=== PATIENT | female | born 1980 | race Caucasian/White ===

== ENCOUNTER 2017-01-24 03:21 | Inpatient (IN) | payer OTHER ==
[~2017-01-24] VITALS: Ht 154.9 cm; Wt 52.0 kg
[~2017-01-24 03:21] MED LIST: /BACL20TA PO; ABIL2TAB2 PO; ABIL5TAB5 PO; AMBI10TA PO; AMIT10TA2 OR; AMIT50TA PO; BACL10TA2; BACL10TA2 OR; CELE-19 PO; CLAR5CHW OR; CLON0.5T PO; CONC18TA14 PO; CONC27TA4 PO; CONC36TA2 PO; DICLOFENAC; DIUREX OR; HYDR-2807 PO; HYDR-3716 PO; HYDR-3719 PO; HYDR7.5T38 PO; IBUP600T OR; LAMI200T3 PO; LAMO10TA PO; LIDO1DIS2 TD; LIDO5DIS; LIDO5DIS36 TD; MAXA5TAB OR; MAXA5TAB10 PO; MEDR1VL IM; METH-107 PO; MOBI15TA PO; MULTIVIT; MULTIVIT OR; NEUR100C OR; NEUR600T PO; PERC10TA17 PO; PHAZYME PO; PREG50CA PO; PROA1AER IN; ROBA500T PO; ROPI0.5T PO; SERT25TA85 PO; STOO100C PO; TIZA4TAB3 PO; TOPA25TA10 PO; TRAM50TA2 PO; TRAZ50TA2 PO; TRAZ50TA4 PO; VALI5TAB PO; VICO5TAB; VITA200016 PO; VITA400T PO; VITA500019 PO; VOLT1GEL2 TD; ZOLO100T OR; [UNRECOGNIZED DRUG - OTHER] TOP; hydrcodone OR
[2017-01-24 04:01] LABS: MEAN CORPUSCULAR HEMOGLOBIN 32.8 pg (27.0-33.0); MEAN CORPUSCULAR HGB CONC 32.3 g/dl (32.0-36.5); MEAN CORPUSCULAR VOLUME 101.4 fl (80.0-96.0); RED CELL DISTRIBUTION WIDTH 13.1 % (11.5-14.5)
[2017-01-24 04:31] LABS: ALBUMIN 3.5 GM/DL (3.2-5.2); ALBUMIN/GLOBULIN RATIO 1.25 (1.00-1.93); ALKALINE PHOSPHATASE 60 U/L (45-117); ALT/SGPT 18 U/L (12-78); ANION GAP 11 MEQ/L (8-16); AST/SGOT 14 U/L (15-37); BILIRUBIN,DIRECT < 0.1 MG/DL (0.0-0.2); BILIRUBIN,TOTAL 0.2 MG/DL (0.2-1.0); BLOOD UREA NITROGEN 5 MG/DL (7-18); CALCIUM LEVEL 7.7 MG/DL (8.5-10.1); CARBON DIOXIDE LEVEL 21 MEQ/L (21-32); CHLORIDE LEVEL 115 MEQ/L (98-107); CREATININE FOR GFR 0.79 MG/DL (0.55-1.02); GLOMERULAR FILTRATION RATE > 60.0 (>60); GLUCOSE, FASTING 122 MG/DL (70-105); POTASSIUM SERUM 3.2 MEQ/L (3.5-5.1); SODIUM LEVEL 147 MEQ/L (136-145); TOTAL PROTEIN 6.3 GM/DL (6.4-8.2)
[2017-01-24] MEDS ORDERED: LIDOCAINE W/EPINEPHRINE 1% 20ML VIAL As Ordered ONE (04:45)
[2017-01-24] MEDS ORDERED: LIDOCAINE 2% MDV 20 ML VIAL As Ordered ONE (04:48)
[2017-01-24 06:20] LABS: AMPHETAMINES LEVEL URINE NEGATIVE (NEGATIVE); BENZODIAZEPINES URINE NEGATIVE (NEGATIVE); COCAINE METABOLITE URINE NEGATIVE (NEGATIVE); CONTROL LINE INT CTR LINE PRESENT; METHADONE URINE NEGATIVE (NEGATIVE); OPIATES URINE NEGATIVE (NEGATIVE); TRICYCLIC ANTIDEPRESS URINE NEGATIVE (NEGATIVE)
[2017-01-24 09:04] LABS: ANION GAP 9 MEQ/L (8-16); BLOOD UREA NITROGEN 4 MG/DL (7-18); CALCIUM LEVEL 8.3 MG/DL (8.5-10.1); CARBON DIOXIDE LEVEL 22 MEQ/L (21-32); CHLORIDE LEVEL 117 MEQ/L (98-107); CREATININE FOR GFR 0.69 MG/DL (0.55-1.02); GLOMERULAR FILTRATION RATE > 60.0 (>60); GLUCOSE, FASTING 114 MG/DL (70-105); POTASSIUM SERUM 3.8 MEQ/L (3.5-5.1); SODIUM LEVEL 148 MEQ/L (136-145)
[2017-01-24] MEDS ORDERED: TOPIRAMATE (TopAMAX) 25 MG TAB PO ONE (10:15)
[2017-01-24] MEDS ORDERED: lamoTRIgine 100MG TAB PO ONE (10:15)
[2017-01-24] MEDS ORDERED: ACETAMINOPHEN 325 MG TAB As Ordered ONE (12:29)
[2017-01-24] MEDS ORDERED: VITMTA PO (14:14)
[2017-01-24] MEDS ORDERED: DEPO150I IM (14:14)
[2017-01-24] MEDS ORDERED: IBUP800T23 PO (14:14)
[2017-01-24] MEDS ORDERED: ARIP1TAB6 PO (14:14)
--- NOTE | 2017-01-24 14:52 | EDDOCDS ---
Nurse's Notes [facility] Name: Albania Casiano Age: 36 yrs Sex: Female : 1980 Arrival Date: 01/24/2017 Time: 03:21 Bed [facility] Private MD: JIGNA Quijano Diagnosis: Bipolar disorder, current episode depressed, moderate;Suicide attempt;Laceration without foreign body of left wrist Presentation: 01/24 03:39 Presenting complaint: EMS states: Patient drank unknown amount, patient intoxicated. nn1 Patient has self inflicted lacerations to left wrist, bleeding controlled with pressure dressing. Per EMS patient admitted to suicidal ideation due to husbands deployment. Mental Health Triage Level: Level 2: The patient displays active suicidal ideations. Adult Sepsis Screening: Patient has new or worsening altered mentation (1 point). Patient's respiratory rate is less than 22. Systolic blood pressure is greater than 100. Patient has a qSOFA score of 0- Negative Sepsis Screen. Suicide/Homicide risk assessment- The patient admits to and/or has been reported to be having suicidal ideations. Status: The patient is a dependent. Transition of care: patient was not received from another setting of care. 03:39 Acuity: JOYCE Level 3 nn1 03:39 Method Of Arrival: Ambulance nn1 Triage Assessment: 03:43 General: Appears intoxicated . Behavior is cooperative, drowsy. Pain: Location: left nn1 arm. HIV screening NA for this visit Offered previously. The patient is triaged at the bedside. See Assessment in Nurses Notes section of ED record. Neurological: Level of Consciousness is awake, Oriented to person, place, time, Speech is slurred. Respiratory: Airway is patent Respiratory effort is even, unlabored, Respiratory pattern is regular, symmetrical. GI: Abdomen is non- distended. Derm: Skin is pink, warm & dry. Injury Description: Laceration sustained to left wrist is not bleeding, Deep self inflicted lacerations x 2, superficial laceration x 1. Historical: - Allergies: Darvocet-N 100 (Hives); Lyrica (Swelling); - Home Meds: 1. Abilify 5 mg , 1-2 tabs as needed at HS for sleep Oral tab 1 tab as needed for agitation 2. lamotrigine 200 mg Oral tab 1 tab in the am 3. topiramate 25 mg oral tab four times a day 4. ibuprofen 800 mg Oral tab 1 tab every 8 hours as needed - PMHx: ADHD; Arthritis; Bipolar disorder; Fibromyalgia; restless leg syndrome; - PSHx: ; - Social history: Smoking status: Patient uses tobacco products and is smoker, current status unknown. Patient intoxicated, disoriented with slurred speech . - Family history: Not pertinent. - : The pt / caregiver states he / she is not on anticoagulants. Home medication list is obtained from the patient, Unable to Verify Home Med List with the patient / caregiver. Note Unable to verify due to patient disorientation at this time. - Exposure Risk Screening:: None identified. Screenin:21 Screening information is obtained from the patient. Fall risk: No risks identified. ml6 Assistance ADL's: requires no assistance with activities of daily living. Abuse/DV Screen: The patient / caregiver reports he/she is: not in a situation that causes fear, pain or injury. Nutritional screening: No deficits noted. Advance Directives: Currently, there is no health care proxy. home support is adequate. Assessment: 03:45 General: See triage assessment . nn1 04:31 General: Appears in no apparent distress, comfortable, Behavior is resting quietly on rw1 stretcher with eyes closed, safety maintained. Respiratory: Airway is patent Respiratory effort is even, unlabored. Derm: Skin is pink, warm & dry. normal, cuts to Lt forearm drsg. is dry and intact. 05:30 General: Appears in no apparent distress, comfortable, Behavior is appropriate for age, rw1 cooperative, crying. Pain: Denies pain. Neurological: Level of Consciousness is awake, alert, obeys commands, Oriented to person, place, time. Respiratory: Airway is patent Respiratory effort is even, unlabored. Derm: Skin is pink, warm & dry. normal, lacerations cleansed with NS and sutured by Dr. Grajeda, pt tolerated well. Applied bactracin and DSD applied per MD order. 06:16 Reassessment: Patient appears in no apparent distress at this time. Patient denies pain rw1 at this time. resting quietly on stretcher with eyes closed, safety maintained . 07:21 General: Appears in no apparent distress, Behavior is appropriate for age, cooperative. ml6 Pain: Denies pain. Neurological: No deficits noted. Level of Consciousness is awake, alert, Oriented to person, place, time. Cardiovascular: No deficits noted. Capillary refill < 3 seconds is brisk in bilateral fingers toes. Respiratory: No deficits noted. Airway is patent Respiratory effort is even, unlabored, Respiratory pattern is regular, symmetrical, Breath sounds are clear bilaterally. GI: No deficits noted. 08:25 General: Appears in no apparent distress, comfortable, Behavior is cooperative, mk4 breakfast taken fair. 10:20 General: Appears in no apparent distress, comfortable, to be sleeping. Behavior is mk4 cooperative, awakens readily . Respiratory: Airway is patent Respiratory effort is even, unlabored, Respiratory pattern is regular, Breath sounds are clear bilaterally. 12:00 General: Appears in no apparent distress, Behavior is cooperative. mk4 13:00 General: Appears in no apparent distress, Behavior is cooperative. Respiratory: Airway mk4 is patent Respiratory effort is even, unlabored. 14:43 General: Appears in no apparent distress, comfortable, Behavior is cooperative. mk4 Neurological: Level of Consciousness is awake, alert, Oriented to person, place, time. Respiratory: Airway is patent Respiratory effort is even, unlabored, Respiratory pattern is regular. 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 [facility] Behavioral Health: madhu The patient is not an established patient of [facility] Behavioral Health. Referral Information: Evaluation referral is generated by EMS. The patient was referred for evaluation because PT attempted suicide by cutting her wrist while intoxicated . Subjective: The patients chief complaint is PT states that she is a and her deployed 01/18/2017. A week prior to his leaving he confessed to her what she had suspected for the last three years since his first deployment, that he had been having an online relationship with a woman. PT states she has been getting angrier and last night she was drinking "due to everything that is going on" and then cut her left wrist while very anxious and panicky. PT denies SI but states she was not thinking clearly due to the anxiety. She now feels she may have cut her wrist to "get my 's attention". PT continues to be weepy and is accepting of admission. . Delusions are denied. Patient's mood is depressed. Mental Health history: ADHD, alcohol abuse, Bipolar Disorder, depression, panic attacks, self -mutilation, suicide attempt by cut left wrist Mental Health Admissions: [facility] 10/2014 and 01/2015 Current Outpatient Mental Health Services: Psychiatrist / Agency: Samm Govea. Current living environment is The patient currently lives with his / her significant other, and their three children ages 15, 13 and 8. The patient is . Patient presents to Emergency Department with the following symptoms within the past 2 weeks: alcohol abuse, anxiety, depressed mood, feelings of helplessness/hopelessness, marital problem, poor impulse control, Patient has mutilated themselves by cutting their left arm suicidal ideation with attempt/gesture by cutting. Substance abuse: Patient uses PT admits to occasional use only Patient uses tobacco 1 pack. Mental status exam: Patients appearance is appropriate, Patient's behavior is cooperative, Speech is normal. Affect is flat. Mood is anxious. depressed. Hallucinations are denied. Appetite is normal. Memory is good. Energy level is normal. Content of thought is depressive. due to her marital situation Thought process is intact. Cognitive level is oriented to person, place, time and situation Patient's insight is fair. Judgement is fair. Rapport with interviewer is good. Suicidal Ideation is denied. Homicidal ideation is denied. Disposition: Medically cleared for disposition by Jose C Silverio MD Psychiatric Consult is performed by phone with Dr Jose J Hayes. [facility] Admission Criteria: The patient has had a suicide attempt in the recent past. The patient requires continuous observation and/or control to protect self, others or property. The patient's care requires a multi-modal treatment plan under close supervision and coordination due to the complexity and severity of the patient's symptoms. Legal Status: Patient's legal status will be Emergency admission: 9.39. DSM-V Differential Diagnosis: Bipolar I Disorder (F31.0) Current or most recent episode depressed. Insurance Pre-Certification: Not Required, . Awaiting: transfer to [facility]. Social Work Consult: 06:00 Social Work Note: Per request of patient, ED MD & patient's 's Bennie (which is jl currently here for support), a message to have patient's returned home from [place] has been completed with Jhoana at the [facility]. Case Number is: [id number]. Vital Signs: 03:31 BP 96 / 53; Pulse 80; Resp 16; Temp 96.9(T); Pulse Ox 97% on R/A; Weight 54.43 kg (R); rw1 Height 5 ft. 1 in. (154.94 cm) (R); Pain 0/10; 06:16 BP 108 / 66; Pulse 84; Resp 16; Temp 98.2(TE); Pulse Ox 100% on R/A; Pain 0/10; rw1 14:03 BP 131 / 93; Pulse 105; Resp 18; Temp 97.6(O); Pulse Ox 100% on R/A; dpm 03:31 Body Mass Index 22.67 (54.43 kg, 154.94 cm) rw1 Vitals: 03:31 Log In Time N/A - ambulance arrival. rw1 ED Course: 03:23 Patient visited by Reji Trujillo PCA. kb5 03:23 [facility] is Private Physician. kb5 03:23 Patient moved to Waiting kb5 03:23 Patient moved to [facility] kb5 03:41 Triage Initiated nn1 03:42 Layla Grajeda MD is Attending Physician. fg 03:42 Patient visited by Layla Grajeda MD. fg 03:57 Patient visited by Ishmael Lema. tr 03:57 Acetaminophen Level Sent. rw1 03:57 Basic Metabolic Profile Sent. rw1 03:57 Complete Blood Count Sent. rw1 03:57 Ethyl Alcohol (ethanol) Sent. rw1 03:57 Liver Profile Sent. rw1 03:57 Salicylate Level Sent. rw1 03:57 Thyroid Stimulating Hormone Sent. rw1 03:59 Patient visited by LemaIshmael. tr 04:19 Patient visited by Ishmael Lema. tr 05:00 Patient visited by Ishmael Lema. tr 05:20 Patient visited by Ishmael Lema. tr 05:31 Patient visited by Ishmael Lema. tr 05:40 Drug Eval Toxicology ED Only Sent. rw1 05:42 Kevin Scott LPN is Primary Nurse. rw1 05:59 Patient visited by Ishmael Lema. tr 06:15 Patient visited by Ishmael Lema. tr 06:29 Patient visited by Ishmael Lema. tr 06:43 Patient visited by Ishmael Lema. tr 06:57 Patient visited by Ishmael Lema. tr 06:58 Blayne Preston, ARIAS is Primary Nurse. ml6 06:59 Attending Physician role handed off by Layla Grajeda MD pc 06:59 Jose C Silverio MD is Attending Physician. pc 07:06 Primary Nurse role handed off by Kevin Scott LPN deg 07:21 The patient / caregiver is instructed regarding the plan of care and ED course. ml6 07:24 Patient visited by Walter Bejarano. dpm 07:37 Patient visited by Walter Bejarano. dpm 07:45 Patient visited by Walter Bejarano. dpm 08:01 Patient visited by Walter Bejarano. dpm 08:21 Patient visited by Walter Bejarano. dpm 08:40 Patient visited by Walter Bejarano. dpm 08:46 ETHYL ALCOHOL (ETHANOL) Sent. mk4 08:46 BASIC METABOLIC PROFILE Sent. mk4 08:56 Patient visited by Walter Bejarano. dpm 09:13 Patient visited by Walter Bejarano. dpm 09:32 Patient visited by Walter Bejarano. dpm 09:51 Patient visited by Walter Bejarano. dpm 09:53 Patient moved to OBSERVATION pc 09:59 Patient visited by Walter Bejarano. dpm 10:15 Patient visited by Walter Bejarano. dpm 10:32 Patient visited by Walter Bejarano. dpm 11:03 Patient visited by Walter Bejarano. dpm 11:06 [facility] Payment Agreement was scanned into [employer] and attached to record. lg 11:26 Patient visited by Walter Bejarano. dpm 11:51 Patient visited by Walter Bejarano. dpm 12:32 Patient visited by Walter Bejarano. dpm 12:50 Patient visited by Walter Bejarano. dpm 13:13 Patient visited by Walter Bejarano. dpm 13:22 [facility] Legal paperwork was scanned into [employer] and attached to record. jfb 13:24 Patient moved to [facility] pc 13:25 Jose J Hayes is Hospitalizing Provider. pc 13:30 Patient visited by Walter Bejarano. dpm 13:46 Patient visited by Walter Bejarano. dpm 14:03 Patient visited by Walter Bejarano. dpm 14:19 Patient visited by Walter Bejarano. dpm 14:45 No IV's were initiated during this patient's visit. No procedures done that require [facility] assistance. Administered Medications: 05:39 Drug: Lidocaine 10 ml [lidocaine 20 mg/mL (2 %) injection solution (10 mL)] {Note: by rw1 Dr. Grajeda.} Route: Infiltration; 11:00 Drug: lamoTRIgine 200 mg [lamotrigine 25 mg tablet (8 tabs)] Route: PO; mk4 11:00 Drug: Topiramate 25 mg Route: PO; mk4 12:33 Drug: Acetaminophen 650 mg [acetaminophen 325 mg tablet (2 tabs)] Route: PO; mk4 Attachments: 13:22 E Legal paperwork jfb Order Results: Lab Order: Acetaminophen Level; SPEC'M 01/24/17 03:54 Test: ACETAMINOPHEN LEVEL; Value: < 2.0; Range: 10.0-30.0; Abnormal: Below low normal; Units: UG/ML; Status: F Lab Order: Basic Metabolic Profile; SPEC'M 01/24/17 03:54 Test: GLUCOSE, FASTING; Value: 122; Range: 70-105; Abnormal: Above high normal; Units: MG/DL; Status: F Test: BLOOD UREA NITROGEN; Value: 5; Range: 7-18; Abnormal: Below low normal; Units: MG/DL; Status: F Test: CREATININE FOR GFR; Value: 0.79; Range: 0.55-1.02; Units: MG/DL; Status: F Test: GLOMERULAR FILTRATION RATE; Value: > 60.0; Range: >60; Status: F Test: SODIUM LEVEL; Value: 147; Range: 136-145; Abnormal: Above high normal; Units: MEQ/L; Status: F Test: POTASSIUM SERUM; Value: 3.2; Range: 3.5-5.1; Abnormal: Below low normal; Units: MEQ/L; Status: F Test: CHLORIDE LEVEL; Value: 115; Range: 98-107; Abnormal: Above high normal; Units: MEQ/L; Status: F Test: CARBON DIOXIDE LEVEL; Value: 21; Range: 21-32; Units: MEQ/L; Status: F Test: ANION GAP; Value: 11; Range: 8-16; Units: MEQ/L; Status: F Test: CALCIUM LEVEL; Value: 7.7; Range: 8.5-10.1; Abnormal: Below low normal; Units: MG/DL; Status: F Test Note: ; Units are mL/min/1.73 m2 Chronic Kidney Disease Staging per NKF: Stage I & II GFR >=60 Normal to Mildly Decreased Stage III GFR 30-59 Moderately Decreased Stage IV GFR 15-29 Severely Decreased Stage V GFR <15 Very Little GFR Left ESRD GFR <15 on PRODUCTION MACHINE OPERATOR Lab Order: Complete Blood Count; SPEC01/24/17 03:54 Test: WHITE BLOOD COUNT; Value: 11.0; Range: 4.0-10.0; Abnormal: Above high normal; Units: K/mm3; Status: F Test: RED BLOOD COUNT; Value: 3.88; Range: 4.00-5.40; Abnormal: Below low normal; Units: M/mm3; Status: F Test: HEMOGLOBIN; Value: 12.7; Range: 12.0-16.0; Units: g/dl; Status: F Test: HEMATOCRIT; Value: 39.4; Range: 36.0-47.0; Units: %; Status: F Test: MEAN CORPUSCULAR VOLUME; Value: 101.4; Range: 80.0-96.0; Abnormal: Above high normal; Units: fl; Status: F Test: MEAN CORPUSCULAR HEMOGLOBIN; Value: 32.8; Range: 27.0-33.0; Units: pg; Status: F Test: MEAN CORPUSCULAR HGB CONC; Value: 32.3; Range: 32.0-36.5; Units: g/dl; Status: F Test: RED CELL DISTRIBUTION WIDTH; Value: 13.1; Range: 11.5-14.5; Units: %; Status: F Test: PLATELET COUNT, AUTOMATED; Value: 299; Range: 150-450; Units: k/mm3; Status: F Lab Order: Drug Eval Toxicology ED Only; SPEC01/24/17 05:25 Test: AMPHETAMINES LEVEL URINE; Value: NEGATIVE; Range: NEGATIVE; Status: F Test: BARBITURATES URINE; Value: NEGATIVE; Range: NEGATIVE; Status: F Test: BENZODIAZEPINES URINE; Value: NEGATIVE; Range: NEGATIVE; Status: F Test: CANNABINOIDS URINE; Value: NEGATIVE; Range: NEGATIVE; Status: F Test: COCAINE METABOLITE URINE; Value: NEGATIVE; Range: NEGATIVE; Status: F Test: METHADONE URINE; Value: NEGATIVE; Range: NEGATIVE; Status: F Test: OPIATES URINE; Value: NEGATIVE; Range: NEGATIVE; Status: F Test: TRICYCLIC ANTIDEPRESS URINE; Value: NEGATIVE; Range: NEGATIVE; Status: F Test Note: ; ALL PRESUMPTIVE POSITIVE FINDINGS ARE UNCONFIRMED NORMAL VALUES THRESHOLD IN NG/ML AMPHETAMINES 1000 METHAMPHETAMINES 1000 BARBITURATES 300 BENZODIAZEPINES 300 CANNABINOIDS (THC) 50 COCAINE METABOLITE 300 METHADONE 300 OPIATES 300 PHENCYCLIDINE 25 TRICYCLIC ANTIDEPRESSANTS 1000 RESULTS ARE FOR MEDICAL PURPOSES ONLY. ALL URINE SPECIMENS WILL BE SAVED FOR 3 DAYS. IF CONFIRMATION OF A PRESUMPTIVE POSTIVE SCREEN RESULT IS DESIRED, CALL CHEMISTRY ([phone]) AND REQUEST URINE TO BE SENT TO REFERENCE LAB. FOR A LIST OF CLOSELY RELATED COMPOUNDS PLEASE CALL THE LAB. Lab Order: Ethyl Alcohol (ethanol); SPEC'M 01/24/17 03:54 Test: ETHYL ALCOHOL (ETHANOL); Value: 0.227; Range: 0.000-0.010; Abnormal: Above high normal; Units: %; Status: F Lab Order: Liver Profile; SPEC'M 01/24/17 03:54 Test: AST/SGOT; Value: 14; Range: 15-37; Abnormal: Below low normal; Units: U/L; Status: F Test: ALT/SGPT; Value: 18; Range: 12-78; Units: U/L; Status: F Test: ALKALINE PHOSPHATASE; Value: 60; Range: 45-117; Units: U/L; Status: F Test: BILIRUBIN,TOTAL; Value: 0.2; Range: 0.2-1.0; Units: MG/DL; Status: F Test: BILIRUBIN,DIRECT; Value: < 0.1; Range: 0.0-0.2; Units: MG/DL; Status: F Test: TOTAL PROTEIN; Value: 6.3; Range: 6.4-8.2; Abnormal: Below low normal; Units: GM/DL; Status: F Test: ALBUMIN; Value: 3.5; Range: 3.2-5.2; Units: GM/DL; Status: F Test: ALBUMIN/GLOBULIN RATIO; Value: 1.25; Range: 1.00-1.93; Status: F Lab Order: Salicylate Level; [facility] 01/24/17 03:54 Test: SALICYLATE LEVEL; Value: 5.7; Range: 5.0-30.0; Units: MG/DL; Status: F Lab Order: Thyroid Stimulating Hormone; [facility] 01/24/17 03:54 Test: THYROID STIMULATING HORMONE; Value: 1.250; Range: 0.358-3.740; Units: uIU/ML; Status: F Lab Order: BASIC METABOLIC PROFILE; [facility] 01/24/17 08:44 Test: GLUCOSE, FASTING; Value: 114; Range: 70-105; Abnormal: Above high normal; Units: MG/DL; Status: F Test: BLOOD UREA NITROGEN; Value: 4; Range: 7-18; Abnormal: Below low normal; Units: MG/DL; Status: F Test: CREATININE FOR GFR; Value: 0.69; Range: 0.55-1.02; Units: MG/DL; Status: F Test: GLOMERULAR FILTRATION RATE; Value: > 60.0; Range: >60; Status: F Test: SODIUM LEVEL; Value: 148; Range: 136-145; Abnormal: Above high normal; Units: MEQ/L; Status: F Test: POTASSIUM SERUM; Value: 3.8; Range: 3.5-5.1; Units: MEQ/L; Status: F Test: CHLORIDE LEVEL; Value: 117; Range: 98-107; Abnormal: Above high normal; Units: MEQ/L; Status: F Test: CARBON DIOXIDE LEVEL; Value: 22; Range: 21-32; Units: MEQ/L; Status: F Test: ANION GAP; Value: 9; Range: 8-16; Units: MEQ/L; Status: F Test: CALCIUM LEVEL; Value: 8.3; Range: 8.5-10.1; Abnormal: Below low normal; Units: MG/DL; Status: F Test Note: ; Units are mL/min/1.73 m2 Chronic Kidney Disease Staging per NKF: Stage I & II GFR >=60 Normal to Mildly Decreased Stage III GFR 30-59 Moderately Decreased Stage IV GFR 15-29 Severely Decreased Stage V GFR <15 Very Little GFR Left ESRD GFR <15 on PRODUCTION MACHINE OPERATOR Lab Order: ETHYL ALCOHOL (ETHANOL); SPEC 01/24/17 08:44 Test: ETHYL ALCOHOL (ETHANOL); Value: 0.143; Range: 0.000-0.010; Abnormal: Above high normal; Units: %; Status: F Outcome: 13:25 Decision to Hospitalize by Provider. 14:44 Discharge Assessment: Patient awake, alert and oriented x 3. No cognitive and/or mk4 functional deficits noted. Patient verbalized understanding of disposition instructions. Discharge Assessment: patient administered narcotics - no. The following High Risk Discharge criteria are identified: None. Discharged to home ambulatory. Condition: good Condition: stable. No special radiology studies were completed. Property left with pt per RNmonae. 14:51 Patient left the ED. 4 Signatures: Jose C Silverio MD MD pc Heather Jackson, Head Baggage Porter Unit deg Yonas Miles, PSA PSA jl Leonela Morales, Reg Reg lg Pita, Ishmael tr Sonia,Kevin,BALL FRINGE MACHINE OPERATOR BALL FRINGE MACHINE OPERATOR rw1 Reji Trujillo, DOCUMENT MANAGEMENT SPECIALIST DOCUMENT MANAGEMENT SPECIALIST kb5 Blayne Preston RN RN ml6 Sharona Gutierrez, PSA PSA jfWalter Candelario dpm, Margaret, RN RN mk4 Nichole Flores,RN RN nn1 Layla Grajeda MD MD fg Corrections: (The following items were deleted from the chart) 09:42 03:42 Home Meds: Abilify 5 mg Oral tab 1 tab as needed; for agitation; [facility] mk4 09:42 03:42 Home Meds: lamotrigine 200 mg Oral tab 1 tab once daily; [facility] mk4 MTDD
--- NOTE | 2017-01-24 14:52 | EDDOCDS ---
Physician Documentation [facility] Name: Albania Casiano Age: 36 yrs Sex: Female : 1980 Arrival Date: 01/24/2017 Time: 03:21 Bed [facility] Private MD: Samm [facility] Disposition: 01/24 13:24 Critical Care: Critical care not applicable. Disposition: 01/24/17 13:25 Hospitalization ordered by Jose J Hayes for Inpatient Admission. Preliminary diagnosis are Bipolar disorder, current episode depressed, moderate, Suicide attempt, Laceration without foreign body of left wrist. - Bed requested for Admit. - Status is Inpatient Admission. mk4 - Condition is Stable. - Problem is new. - Symptoms are unchanged. Historical: - Allergies: Darvocet-N 100 (Hives); Lyrica (Swelling); - Home Meds: 1. Abilify 5 mg , 1-2 tabs as needed at HS for sleep Oral tab 1 tab as needed for agitation 2. lamotrigine 200 mg Oral tab 1 tab in the am 3. topiramate 25 mg oral tab four times a day 4. ibuprofen 800 mg Oral tab 1 tab every 8 hours as needed - PMHx: ADHD; Arthritis; Bipolar disorder; Fibromyalgia; restless leg syndrome; - PSHx: ; - Social history: Smoking status: Patient uses tobacco products and is smoker, current status unknown. Patient intoxicated, disoriented with slurred speech . - Family history: Not pertinent. - : The pt / caregiver states he / she is not on anticoagulants. Home medication list is obtained from the patient, Unable to Verify Home Med List with the patient / caregiver. Note Unable to verify due to patient disorientation at this time. - Exposure Risk Screening:: None identified. Vital Signs: 03:31 BP 96 / 53; Pulse 80; Resp 16; Temp 96.9(T); Pulse Ox 97% on R/A; Weight 54.43 kg / 120 rw1 lbs (R); Height 5 ft. 1 in. (154.94 cm) (R); Pain 0/10; 06:16 BP 108 / 66; Pulse 84; Resp 16; Temp 98.2(TE); Pulse Ox 100% on R/A; Pain 0/10; rw1 14:03 BP 131 / 93; Pulse 105; Resp 18; Temp 97.6(O); Pulse Ox 100% on R/A; dpm 03:31 Body Mass Index 22.67 (54.43 kg, 154.94 cm) rw1 Procedures: 06:55 Laceration repair:. fg Laceration: 06:55 Wound Repair of 2cm ( 0.8in ) full thickness laceration to left arm. Linear shaped.. fg Distal neuro/vascular/tendon intact. Anesthesia: Local anesthetic administered with 2 mls of 1% lidocaine w/ Epi. Wound prep: Simple cleansing. Skin closed with 5 thin layer Ethilon using Simple interrupted sutures. Dressed with Bacitracin. Patient tolerated well. 06:55 Wound Repair of 3cm ( 1.2in ) subcutaneous laceration to left arm. Linear shaped.. fg Neuro:Intact distal to wound.. Vascular:Intact distal to wound. Tendon:Intact distal to wound. Anesthesia: Local anesthetic administered with 2 mls of 1% lidocaine w/ Epi. Wound prep: Simple cleansing by nurse. Skin closed with 3 x 5-0 Ethilon using Simple interrupted sutures. MDM: 03:44 Consult PFS/PSA/Custom Designer: Patient's case requires discussion with on-call fg Psychiatrist ordered. 03:44 PSA/PFS to call Nursing [employer], to enter patient data on [place] Safe Act if patient fg involuntarily admitted or transferred for SI or HI ordered. 03:44 Confirm accurate psychiatric medication list and times of last dosage ordered. fg 03:44 Detain Pt Until Medically/PFS Cleared ordered. fg 03:45 Acetaminophen Level Ordered. EDMS 03:45 Basic Metabolic Profile Ordered. EDMS 03:45 Complete Blood Count Ordered. EDMS 03:45 Drug Eval Toxicology ED Only Ordered. EDMS 03:45 Ethyl Alcohol (ethanol) Ordered. EDMS 03:45 Liver Profile Ordered. EDMS 03:45 Salicylate Level Ordered. EDMS 03:45 Thyroid Stimulating Hormone Ordered. EDMS 04:45 Lidocaine 20 mg/mL (2 %) 10 ml Infiltration once; to bedside ordered. fg 05:47 REGULAR DIET PLASTIC CLIFTON+DIET ordered. EDMS 06:59 Awaiting: The patient is awaiting psychiatric admission or transfer. All labs and pc investigations have been reviewed. The vital signs have been reviewed. The patient remains medically cleared for disposition. 07:01 Acetaminophen Level Reviewed. pc 07:01 Basic Metabolic Profile Reviewed. pc 07:01 Complete Blood Count Reviewed. pc 07:01 Ethyl Alcohol (ethanol) Reviewed. pc 07:01 Liver Profile Reviewed. pc 07:01 Drug Eval Toxicology ED Only Reviewed. pc 07:01 Salicylate Level Reviewed. pc 07:01 Thyroid Stimulating Hormone Reviewed. pc 08:29 Redraw Labs ordered. pc 08:30 Redraw Labs complete. deg 08:33 BASIC METABOLIC PROFILE Ordered. EDMS 08:33 ETHYL ALCOHOL (ETHANOL) Ordered. EDMS 09:21 BASIC METABOLIC PROFILE Reviewed. pc 09:21 ETHYL ALCOHOL (ETHANOL) Reviewed. pc 09:46 Financial registration complete. lg 09:53 lamoTRIgine 200 mg PO once ordered. mk4 09:53 Topiramate 25 mg PO once ordered. mk4 11:06 [facility] Payment Agreement was scanned into [employer] and attached to record. lg 11:46 PSA/PFS to call Nursing [employer], to enter patient data on [facility] Safe Act if patient [facility] involuntarily admitted or transferred for SI or HI complete. 11:46 Consult PFS/PSA/Custom Designer: Patient's case requires discussion with on-call [facility] Psychiatrist complete. 11:47 REGULAR DIET PLASTIC CLIFTON+DIET ordered. EDMS 12:25 Acetaminophen Tablet 650 mg PO once ordered. mk4 13:17 Admit to [facility]: ordered. EDMS 13:22 [facility] Legal paperwork was scanned into [employer] and attached to record. jfb 13:24 [place] Safe Act reporting: The patient poses a significant risk to self or others, and PSA/PFS has notified the Nursing [employer] and he/she will complete the required database reporting consultant. The patient has been re-examined and re-evaluated. There is no appreciated change of the patient's symptoms at this time. Disposition: The historical points, examination findings, and any diagnostic results supporting the provided diagnosis, were discussed with the patient or legal guardian. The need for further work-up and/or treatment in the hospital was explained. Administered Medications: 05:39 Drug: Lidocaine 10 ml [lidocaine 20 mg/mL (2 %) injection solution (10 mL)] {Note: by rw1 Dr. Grajeda.} Route: Infiltration; 11:00 Drug: lamoTRIgine 200 mg [lamotrigine 25 mg tablet (8 tabs)] Route: PO; mk4 11:00 Drug: Topiramate 25 mg Route: PO; [facility] 12:33 Drug: Acetaminophen 650 mg [acetaminophen 325 mg tablet (2 tabs)] Route: PO; 4 Signatures: Dispatcher [employer] Jose C Tena MD MD pc Murray, Denise, Pediatric Psychiatrist Unit deg ShelbyLeonela britton, Reg Reg lg Workman,Kevin,BREAK OFF WORKER BREAK OFF WORKER rw1 Sharona Gutierrez, PSA PSA Kasey Gallardo RN RN [facility] Nichole FloresRN RN nn1 Layla Grajeda MD MD The chart was reviewed and I authenticate all verbal orders and agree with the evaluation and treatment provided.Corrections: (The following items were deleted from the chart) 08:28 03:44 Consult PFS/PSA/Custom Designer ordered. [facility] 09:42 03:42 Home Meds: Abilify 5 mg Oral tab 1 tab as needed; for agitation; [place] [id number] 09:42 03:42 Home Meds: lamotrigine 200 mg Oral tab 1 tab once daily; [place] [id number] Attachments: 11:06 [facility] Payment Agreement lg MTDD
[2017-01-24 15:00] VITALS: BP 133/82
[2017-01-24] MEDS ORDERED: MOM 30ML SUSPENSION UDC PO PRN (16:30)
[2017-01-24] MEDS ORDERED: chlordiazePOXIDE 25 MG CAP PO PRN (16:30)
[2017-01-24] MEDS ORDERED: MAALOX 30 ML SUSP *UDC PO PRN (16:30)
[2017-01-24] MEDS ORDERED: traZODone 50 MG TAB PO PRN (16:30)
[2017-01-24] MEDS: FOLIC ACID 1 MG TAB PO SCH (16:50)
[2017-01-24] MEDS: NICOTINE 21MG/24HR 1 EA TRANSDERMAL TD SCH (16:51)
[2017-01-24] MEDS: MULTIVITAMINS/MINERALS THERAP 1 TAB PO SCH (16:51)
[2017-01-24] MEDS ORDERED: THIAMINE 100 MG TAB PO ONE (17:00)
[2017-01-24 20:00] VITALS: BP 133/82
[2017-01-24] MEDS: TOPIRAMATE (TopAMAX) 25 MG TAB PO SCH (21:17)
[2017-01-24] MEDS: IBUPROFEN 800 MG TAB PO PRN (21:18)
[2017-01-25 06:47] VITALS: BP 125/58
[2017-01-25] MEDS: THIAMINE 100 MG TAB PO SCH ×2 (08:35→21:44)
[2017-01-25] MEDS: MULTIVITAMINS/MINERALS THERAP 1 TAB PO SCH (08:35)
[2017-01-25] MEDS: TOPIRAMATE (TopAMAX) 25 MG TAB PO SCH ×2 (08:35→21:44)
[2017-01-25] MEDS: lamoTRIgine 100MG TAB PO SCH (08:35)
[2017-01-25] MEDS: FOLIC ACID 1 MG TAB PO SCH (08:35)
[2017-01-25] MEDS: NICOTINE 21MG/24HR 1 EA TRANSDERMAL TD SCH (08:36)
[2017-01-25] MEDS: IBUPROFEN 800 MG TAB PO PRN (08:38)
--- NOTE | 2017-01-25 11:35 | HPEPDOC ---
Medical History and Physical Date of Admission Jan 24, 2017 at 14:55 History and Physical PCP: Samm ATTENDING: Dr. Paulo Gutiérrez HPI: 36yoF admitted to [facility] for Bipolar disorder, being medically examined today. Patient with a self-inflicted laceration to the left wrist, 7 sutures intact. Denies any fevers, chills, weakness, fatigue, LOVE, CP, SOB, cough, palpitations, abdominal pain, N/V/D or changes in bowel or bladder habits. 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 None currently. IV Drug Use: Denies Tattoos done unprofessionally: 1. Patient states screened for HIV and hepatitis 8 years ago, negative. Declines rescreening. FAMHX: Mother: Alive, hypertension, kidney disease Father: Alive, hepatitis C, liver disease, alcohol use Siblings: 2 brother, one sister Alive, history of COPD, testicular cancer Children: Alive, scoliosis Unexpected deaths due to medical reasons: None. ROS: As noted in HPI, otherwise 11pt ROS of systems reviewed and remarkable only for LMP unknown. PE: GEN: 36yoF, appears stated age. Well-nourished, well developed. No acute distress. Alert and oriented x 3. Pleasant, interactive. HEENT: Normocephalic, atraumatic. Pupils are equal, round, and reactive to light. Extraocular movements are intact. No nystagmus appreciated. Sclera are nonicteric. Conjunctiva without injection. Nose midline. Nasal turbinates without bogginess. EACs both patent BL. TMs both visualized and keller with good cone of light, no bulging or erythema. No facial asymmetry. Moist mucous membranes. Dentition fair. Pharynx pink and moist, no cobblestoning. Neck supple , trachea midline. No lymphadenopathy or thyromegaly appreciated. CHEST: Regular rate and rhythm, +S1, +S2 LUNGS: Clear to auscultation bilaterally. No wheezes, rales, or rhonchi. Breathing appears symmetric and easy. Patient is speaking in full sentences. No accessory muscle use. ABD: Round, soft, non-tender, non-distended. +Bowel sounds throughout. No rebound or guarding. No costovertebral angle tenderness. EXT: Pulses 2+ bilaterally dorsalis pedis and radial. No lower extremity edema appreciated. SKIN: Casas, dry, warm. Capillary refill <2sec. No rashes. Laceration 2 left wrist, 7 sutures intact. No drainage. NEURO: Alert and oriented x 3. Cranial nerves III-XII are intact. No focal deficits appreciated. EKG: pending. A&P: 36yoF admitted to [facility] for Bipolar disorder 1. Psych. Plan per Psychiatry. Obtain baseline EKG to assure the safety of psychiatric medications as they can prolong the QT interval. 2. Nicotine dependence. Patch available. 3. Laceration left wrist. Sutures intact. Dry dressing. Keep area clean and dry. Monitor. 4. Follow up with PCP on discharge. Samm. 5. Add hCG to admission labs. 6. Chronic migraine headache. Continue Topamax 50 mg by mouth twice a day. 7. History of fibromyalgia/chronic low back pain. Continue Tylenol arthritis as needed. 8. Patient remains on Depo-Provera every 3 monthly. 9. Leukocytosis. Patient is afebrile. Asymptomatic. Likely stress response. Recheck CBC in a.m. 10. Hypernatremia. Recheck BMP. 11. Staff member present throughout exam, Sendy BIANCHI. Vital Signs Vital Signs Label Value Date Time Patient Temperature 98.1 degrees F 01/25/17 0647 Temperature Source Tympanic 01/25/17 0647 Pulse 92 01/25/17 0647 Respiratory Rate 20 bpm 01/25/17 0647 Blood Pressure Assessment 125/58 (80) 01/25/17 0647 Laboratory Data Labs 24H Item Value Date Time White Blood Count 11.0 K/mm3 H 01/24/17 035 Red Blood Count 3.88 M/mm3 L 01/24/17 035 Hemoglobin 12.7 g/dl 01/24/17 035 Hematocrit 39.4 % 01/24/17 035 Mean Corpuscular Volume 101.4 fl H 01/24/17 0354 Mean Corpuscular Hemoglobin 32.8 pg 01/24/17 035 Mean Corpuscular Hemoglobin Concent 32.3 g/dl 01/24/17 035 Red Cell Distribution Width 13.1 % 01/24/17 035 Platelet Count 299 k/mm3 01/24/17 0354 Sodium Level 148 MEQ/L H 01/24/17 0844 Potassium Level 3.8 MEQ/L 01/24/17 0844 Chloride Level 117 MEQ/L H 01/24/17 0844 Carbon Dioxide Level 22 MEQ/L 01/24/17 0844 Anion Gap 9 MEQ/L 01/24/17 0844 Blood Urea Nitrogen 4 MG/DL L 01/24/17 0844 Creatinine 0.69 MG/DL 01/24/17 08 Glomerular Filtration Rate > 60.0 01/24/17 0844 Fasting Glucose 114 MG/DL H 01/24/17 0844 Calcium Level 8.3 MG/DL L 01/24/17 0844 Salicylates Level 5.7 MG/DL 01/24/17 035 Urine Opiates Screen NEGATIVE 01/24/17 0525 Urine Methadone Screen NEGATIVE 01/24/17 0525 Acetaminophen Level < 2.0 UG/ML L 01/24/17353 Urine Barbiturates Screen NEGATIVE 01/24/17 0525 Urine Tricyclic Antidepressants NEGATIVE 01/24/17 0525 Urine Amphetamines Screen NEGATIVE 01/24/17 0525 Urine Benzodiazepines Screen NEGATIVE 01/24/17 0525 Urine Cocaine Metabolite Screen NEGATIVE 01/24/17 0525 Urine Cannabinoids Screen NEGATIVE 01/24/17 0525 Ethyl Alcohol Level 0.227 % H 01/24/17353 Ethyl Alcohol Level 0.143 % H 01/24/17 0844 Home Medications Scheduled Aripiprazole (Aripiprazole) 5 Mg Tab 5 MG PO DAILY Lamotrigine (Lamictal) 200 Mg Tab 200 MG PO DAILY Medroxyprogesterone Acetate (Depo-Provera Contraceptiv) 150 Mg/Ml Inj 150 MG IM Q3M LAST HAD SOMETIME IN DECEMBER Multivitamins *[facility] STOCKED* (Thera M Plus *[facility] STOCKED*) 1 Tab Tab 1 TAB PO DAILY Topiramate (Topamax) 25 Mg Tab 50 MG PO BID Scheduled PRN Ibuprofen (Ibuprofen) 800 Mg Tab 800 MG PO TID PRN PRN PAIN Allergies Coded Allergies: Acetaminophen (Verified Allergy, Intermediate, VOMIT, 01/20/15) Pregabalin (Verified Adverse Reaction, Intermediate, STOMACH SWELLS, ) Pollen Extract (Verified Adverse Reaction, Mild, NASAL CONGESTION, 04/01/14) Neda Delgado Jan 25, 2017 11:35
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
[2017-01-25 12:43] LABS: CONTROL LINE HCG INT CTR LINE PRESENT
[2017-01-25] MEDS: ACETAMINOPHEN 650MG ER TAB (TYLENOL ARTHRITIS) PO PRN (15:52)
[2017-01-25 18:00] VITALS: BP 136/91
[2017-01-26] MEDS: ACETAMINOPHEN 650MG ER TAB (TYLENOL ARTHRITIS) PO PRN ×2 (05:56→16:25)
[2017-01-26 06:37] VITALS: BP 105/63
[2017-01-26 07:31] LABS: MEAN CORPUSCULAR HEMOGLOBIN 33.7 pg (27.0-33.0); MEAN CORPUSCULAR HGB CONC 33.7 g/dl (32.0-36.5); MEAN CORPUSCULAR VOLUME 99.9 fl (80.0-96.0); RED CELL DISTRIBUTION WIDTH 12.8 % (11.5-14.5); WHITE BLOOD COUNT 11.3 K/mm3 (4.0-10.0)
[2017-01-26 07:42] LABS: ANION GAP 8 MEQ/L (8-16); BLOOD UREA NITROGEN 8 MG/DL (7-18); CALCIUM LEVEL 8.7 MG/DL (8.5-10.1); CARBON DIOXIDE LEVEL 24 MEQ/L (21-32); CHLORIDE LEVEL 109 MEQ/L (98-107); CREATININE FOR GFR 0.81 MG/DL (0.55-1.02); GLOMERULAR FILTRATION RATE > 60.0 (>60); GLUCOSE, FASTING 92 MG/DL (70-105); POTASSIUM SERUM 4.2 MEQ/L (3.5-5.1); SODIUM LEVEL 141 MEQ/L (136-145)
[2017-01-26] MEDS: MULTIVITAMINS/MINERALS THERAP 1 TAB PO SCH (08:59)
[2017-01-26] MEDS: THIAMINE 100 MG TAB PO SCH ×2 (08:59→21:21)
[2017-01-26] MEDS: TOPIRAMATE (TopAMAX) 25 MG TAB PO SCH ×2 (08:59→21:21)
[2017-01-26] MEDS: FOLIC ACID 1 MG TAB PO SCH (08:59)
[2017-01-26] MEDS: NICOTINE 21MG/24HR 1 EA TRANSDERMAL TD SCH (09:00)
[2017-01-26] MEDS: lamoTRIgine 100MG TAB PO SCH (09:00)
--- NOTE | 2017-01-26 15:53 | EDDOCDS ---
Physician Documentation [facility] Name: Albania Casiano Age: 36 yrs Sex: Female : 1980 Arrival Date: 01/24/2017 Time: 03:[address] [facility] Private MD: Samm [facility] [place] Disposition: 01/24 13:24 Critical Care: Critical care not applicable. Disposition: 01/24/17 13:25 Hospitalization ordered by Jose J Hayes for Inpatient Admission. Preliminary diagnosis are Bipolar disorder, current episode depressed, moderate, Suicide attempt, Laceration without foreign body of left wrist. - Bed requested for Admit. - Status is Inpatient Admission. mk4 - Condition is Stable. - Problem is new. - Symptoms are unchanged. Historical: - Allergies: Darvocet-N 100 (Hives); Lyrica (Swelling); - Home Meds: 1. Abilify 5 mg , 1-2 tabs as needed at HS for sleep Oral tab 1 tab as needed for agitation 2. lamotrigine 200 mg Oral tab 1 tab in the am 3. topiramate 25 mg oral tab four times a day 4. ibuprofen 800 mg Oral tab 1 tab every 8 hours as needed - PMHx: ADHD; Arthritis; Bipolar disorder; Fibromyalgia; restless leg syndrome; - PSHx: ; - Social history: Smoking status: Patient uses tobacco products and is smoker, current status unknown. Patient intoxicated, disoriented with slurred speech . - Family history: Not pertinent. - : The pt / caregiver states he / she is not on anticoagulants. Home medication list is obtained from the patient, Unable to Verify Home Med List with the patient / caregiver. Note Unable to verify due to patient disorientation at this time. - Exposure Risk Screening:: None identified. Vital Signs: 03:31 BP 96 / 53; Pulse 80; Resp 16; Temp 96.9(T); Pulse Ox 97% on R/A; Weight 54.43 kg / 120 rw1 lbs (R); Height 5 ft. 1 in. (154.94 cm) (R); Pain 0/10; 06:16 BP 108 / 66; Pulse 84; Resp 16; Temp 98.2(TE); Pulse Ox 100% on R/A; Pain 0/10; rw1 14:03 BP 131 / 93; Pulse 105; Resp 18; Temp 97.6(O); Pulse Ox 100% on R/A; dpm 03:31 Body Mass Index 22.67 (54.43 kg, 154.94 cm) rw1 Procedures: 06:55 Laceration repair:. fg Laceration: 06:55 Wound Repair of 2cm ( 0.8in ) full thickness laceration to left arm. Linear shaped.. fg Distal neuro/vascular/tendon intact. Anesthesia: Local anesthetic administered with 2 mls of 1% lidocaine w/ Epi. Wound prep: Simple cleansing. Skin closed with 5 thin layer Ethilon using Simple interrupted sutures. Dressed with Bacitracin. Patient tolerated well. 06:55 Wound Repair of 3cm ( 1.2in ) subcutaneous laceration to left arm. Linear shaped.. fg Neuro:Intact distal to wound.. Vascular:Intact distal to wound. Tendon:Intact distal to wound. Anesthesia: Local anesthetic administered with 2 mls of 1% lidocaine w/ Epi. Wound prep: Simple cleansing by nurse. Skin closed with 3 x 5-0 Ethilon using Simple interrupted sutures. MDM: 03:44 Consult PFS/PSA/Atmospheric Drier Tender: Patient's case requires discussion with on-call fg Psychiatrist ordered. 03:44 PSA/PFS to call Nursing Fabric Sourcer, to enter patient data on [place] Safe Act if patient fg involuntarily admitted or transferred for SI or HI ordered. 03:44 Confirm accurate psychiatric medication list and times of last dosage ordered. fg 03:44 Detain Pt Until Medically/PFS Cleared ordered. fg 03:45 Acetaminophen Level Ordered. EDMS 03:45 Basic Metabolic Profile Ordered. EDMS 03:45 Complete Blood Count Ordered. EDMS 03:45 Drug Eval Toxicology ED Only Ordered. EDMS 03:45 Ethyl Alcohol (ethanol) Ordered. EDMS 03:45 Liver Profile Ordered. EDMS 03:45 Salicylate Level Ordered. EDMS 03:45 Thyroid Stimulating Hormone Ordered. EDMS 04:45 Lidocaine 20 mg/mL (2 %) 10 ml Infiltration once; to bedside ordered. fg 05:47 REGULAR DIET PLASTIC CLIFTON+DIET ordered. EDMS 06:59 Awaiting: The patient is awaiting psychiatric admission or transfer. All labs and pc investigations have been reviewed. The vital signs have been reviewed. The patient remains medically cleared for disposition. 07:01 Acetaminophen Level Reviewed. pc 07:01 Basic Metabolic Profile Reviewed. pc 07:01 Complete Blood Count Reviewed. pc 07:01 Ethyl Alcohol (ethanol) Reviewed. pc 07:01 Liver Profile Reviewed. pc 07:01 Drug Eval Toxicology ED Only Reviewed. pc 07:01 Salicylate Level Reviewed. pc 07:01 Thyroid Stimulating Hormone Reviewed. pc 08:29 Redraw Labs ordered. pc 08:30 Redraw Labs complete. deg 08:33 BASIC METABOLIC PROFILE Ordered. EDMS 08:33 ETHYL ALCOHOL (ETHANOL) Ordered. EDMS 09:21 BASIC METABOLIC PROFILE Reviewed. pc 09:21 ETHYL ALCOHOL (ETHANOL) Reviewed. pc 09:46 Financial registration complete. lg 09:53 lamoTRIgine 200 mg PO once ordered. mk4 09:53 Topiramate 25 mg PO once ordered. mk4 11:06 [facility] Payment Agreement was scanned into [employer] and attached to record. lg 11:46 PSA/PFS to call Nursing Fabric Sourcer, to enter patient data on [facility] Safe Act if patient [facility] involuntarily admitted or transferred for SI or HI complete. 11:46 Consult PFS/PSA/Atmospheric Drier Tender: Patient's case requires discussion with on-call [facility] Psychiatrist complete. 11:47 REGULAR DIET PLASTIC CLIFTON+DIET ordered. EDMS 12:25 Acetaminophen Tablet 650 mg PO once ordered. 4 13:17 Admit to [facility]: ordered. EDMS 13:22 [facility] Legal paperwork was scanned into [employer] and attached to record. jfb 13:24 [place] Safe Act reporting: The patient poses a significant risk to self or others, and PSA/PFS has notified the Nursing Fabric Sourcer and he/she will complete the required data management specialist. The patient has been re-examined and re-evaluated. There is no appreciated change of the patient's symptoms at this time. Disposition: The historical points, examination findings, and any diagnostic results supporting the provided diagnosis, were discussed with the patient or legal guardian. The need for further work-up and/or treatment in the hospital was explained. 21:45 T-Sheet-- Draft Copy was scanned into [employer] and attached to record. klr Administered Medications: 05:39 Drug: Lidocaine 10 ml [lidocaine 20 mg/mL (2 %) injection solution (10 mL)] {Note: by rw1 Dr. Grajeda.} Route: Infiltration; 11:00 Drug: lamoTRIgine 200 mg [lamotrigine 25 mg tablet (8 tabs)] Route: PO; 4 11:00 Drug: Topiramate 25 mg Route: PO; 4 12:33 Drug: Acetaminophen 650 mg [acetaminophen 325 mg tablet (2 tabs)] Route: PO; 4 Signatures: Dispatcher [employer] Jose C Tena MD MD pc Murray, Heather, Registration Manager Unit deg Leonela Morales, Reg Reg lg Workman,Kevin,ENGINEERING AIDE ENGINEERING AIDE rw1 Sharona Gutierrez, PSA PSA jfb Kasey Mcdaniel RN RN 4 Nichole FloresRN RN nn1 Layla Grajeda MD MD fg Redder, Kathie klr The chart was reviewed and I authenticate all verbal orders and agree with the evaluation and treatment provided.Corrections: (The following items were deleted from the chart) 08:28 03:44 Consult PFS/PSA/Atmospheric Drier Tender ordered. fg 09:42 03:42 Home Meds: Abilify 5 mg Oral tab 1 tab as needed; for agitation; [place] [address] 09:42 03:42 Home Meds: lamotrigine 200 mg Oral tab 1 tab once daily; [place] [address] Attachments: 11:06 [facility] Payment Agreement lg 21:45 T-Sheet-- Draft Copy klr Chart Complete MTDD
--- NOTE | 2017-01-26 15:53 | EDDOCDS ---
Nurse's Notes [facility] Name: Albania Casiano Age: 36 yrs Sex: Female : 1980 Arrival Date: 01/24/2017 Time: 03:21 Bed [facility] Private MD: JIGNA Quijano Diagnosis: Bipolar disorder, current episode depressed, moderate;Suicide attempt;Laceration without foreign body of left wrist Presentation: 01/24 03:39 Presenting complaint: EMS states: Patient drank unknown amount, patient intoxicated. nn1 Patient has self inflicted lacerations to left wrist, bleeding controlled with pressure dressing. Per EMS patient admitted to suicidal ideation due to husbands deployment. Mental Health Triage Level: Level 2: The patient displays active suicidal ideations. Adult Sepsis Screening: Patient has new or worsening altered mentation (1 point). Patient's respiratory rate is less than 22. Systolic blood pressure is greater than 100. Patient has a qSOFA score of 0- Negative Sepsis Screen. Suicide/Homicide risk assessment- The patient admits to and/or has been reported to be having suicidal ideations. Status: The patient is a dependent. Transition of care: patient was not received from another setting of care. 03:39 Acuity: JOYCE Level 3 nn1 03:39 Method Of Arrival: Ambulance nn1 Triage Assessment: 03:43 General: Appears intoxicated . Behavior is cooperative, drowsy. Pain: Location: left nn1 arm. HIV screening NA for this visit Offered previously. The patient is triaged at the bedside. See Assessment in Nurses Notes section of ED record. Neurological: Level of Consciousness is awake, Oriented to person, place, time, Speech is slurred. Respiratory: Airway is patent Respiratory effort is even, unlabored, Respiratory pattern is regular, symmetrical. GI: Abdomen is non- distended. Derm: Skin is pink, warm & dry. Injury Description: Laceration sustained to left wrist is not bleeding, Deep self inflicted lacerations x 2, superficial laceration x 1. Historical: - Allergies: Darvocet-N 100 (Hives); Lyrica (Swelling); - Home Meds: 1. Abilify 5 mg , 1-2 tabs as needed at HS for sleep Oral tab 1 tab as needed for agitation 2. lamotrigine 200 mg Oral tab 1 tab in the am 3. topiramate 25 mg oral tab four times a day 4. ibuprofen 800 mg Oral tab 1 tab every 8 hours as needed - PMHx: ADHD; Arthritis; Bipolar disorder; Fibromyalgia; restless leg syndrome; - PSHx: ; - Social history: Smoking status: Patient uses tobacco products and is smoker, current status unknown. Patient intoxicated, disoriented with slurred speech . - Family history: Not pertinent. - : The pt / caregiver states he / she is not on anticoagulants. Home medication list is obtained from the patient, Unable to Verify Home Med List with the patient / caregiver. Note Unable to verify due to patient disorientation at this time. - Exposure Risk Screening:: None identified. Screenin:21 Screening information is obtained from the patient. Fall risk: No risks identified. ml6 Assistance ADL's: requires no assistance with activities of daily living. Abuse/DV Screen: The patient / caregiver reports he/she is: not in a situation that causes fear, pain or injury. Nutritional screening: No deficits noted. Advance Directives: Currently, there is no health care proxy. home support is adequate. Assessment: 03:45 General: See triage assessment . nn1 04:31 General: Appears in no apparent distress, comfortable, Behavior is resting quietly on rw1 stretcher with eyes closed, safety maintained. Respiratory: Airway is patent Respiratory effort is even, unlabored. Derm: Skin is pink, warm & dry. normal, cuts to Lt forearm drsg. is dry and intact. 05:30 General: Appears in no apparent distress, comfortable, Behavior is appropriate for age, rw1 cooperative, crying. Pain: Denies pain. Neurological: Level of Consciousness is awake, alert, obeys commands, Oriented to person, place, time. Respiratory: Airway is patent Respiratory effort is even, unlabored. Derm: Skin is pink, warm & dry. normal, lacerations cleansed with NS and sutured by Dr. Grajeda, pt tolerated well. Applied bactracin and DSD applied per MD order. 06:16 Reassessment: Patient appears in no apparent distress at this time. Patient denies pain rw1 at this time. resting quietly on stretcher with eyes closed, safety maintained . 07:21 General: Appears in no apparent distress, Behavior is appropriate for age, cooperative. ml6 Pain: Denies pain. Neurological: No deficits noted. Level of Consciousness is awake, alert, Oriented to person, place, time. Cardiovascular: No deficits noted. Capillary refill < 3 seconds is brisk in bilateral fingers toes. Respiratory: No deficits noted. Airway is patent Respiratory effort is even, unlabored, Respiratory pattern is regular, symmetrical, Breath sounds are clear bilaterally. GI: No deficits noted. 08:25 General: Appears in no apparent distress, comfortable, Behavior is cooperative, mk4 breakfast taken fair. 10:20 General: Appears in no apparent distress, comfortable, to be sleeping. Behavior is mk4 cooperative, awakens readily . Respiratory: Airway is patent Respiratory effort is even, unlabored, Respiratory pattern is regular, Breath sounds are clear bilaterally. 12:00 General: Appears in no apparent distress, Behavior is cooperative. mk4 13:00 General: Appears in no apparent distress, Behavior is cooperative. Respiratory: Airway mk4 is patent Respiratory effort is even, unlabored. 14:43 General: Appears in no apparent distress, comfortable, Behavior is cooperative. mk4 Neurological: Level of Consciousness is awake, alert, Oriented to person, place, time. Respiratory: Airway is patent Respiratory effort is even, unlabored, Respiratory pattern is regular. 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 [facility] Behavioral Health: madhu The patient is not an established patient of [facility] Behavioral [facility]. Referral Information: Evaluation referral is generated by EMS. The patient was referred for evaluation because PT attempted suicide by cutting her wrist while intoxicated . Subjective: The patients chief complaint is PT states that she is a and her deployed 01/18/2017. A week prior to his leaving he confessed to her what she had suspected for the last three years since his first deployment, that he had been having an online relationship with a woman. PT states she has been getting angrier and last night she was drinking "due to everything that is going on" and then cut her left wrist while very anxious and panicky. PT denies SI but states she was not thinking clearly due to the anxiety. She now feels she may have cut her wrist to "get my 's attention". PT continues to be weepy and is accepting of admission. . Delusions are denied. Patient's mood is depressed. Mental Health history: ADHD, alcohol abuse, Bipolar Disorder, depression, panic attacks, self -mutilation, suicide attempt by cut left wrist Mental Health Admissions: [facility] 10/2014 and 01/2015 Current Outpatient Mental Health Services: Psychiatrist / Agency: Samm Gove[facility]. Current living environment is The patient currently lives with his / her significant other, and their three children ages 15, 13 and 8. The patient is . Patient presents to Emergency Department with the following symptoms within the past 2 weeks: alcohol abuse, anxiety, depressed mood, feelings of helplessness/hopelessness, marital problem, poor impulse control, Patient has mutilated themselves by cutting their left arm suicidal ideation with attempt/gesture by cutting. Substance abuse: Patient uses PT admits to occasional use only Patient uses tobacco 1 pack. Mental status exam: Patients appearance is appropriate, Patient's behavior is cooperative, Speech is normal. Affect is flat. Mood is anxious. depressed. Hallucinations are denied. Appetite is normal. Memory is good. Energy level is normal. Content of thought is depressive. due to her marital situation Thought process is intact. Cognitive level is oriented to person, place, time and situation Patient's insight is fair. Judgement is fair. Rapport with interviewer is good. Suicidal Ideation is denied. Homicidal ideation is denied. Disposition: Medically cleared for disposition by Jose C Silverio MD Psychiatric Consult is performed by phone with Dr Jose J Hayes. [facility] Admission Criteria: The patient has had a suicide attempt in the recent past. The patient requires continuous observation and/or control to protect self, others or property. The patient's care requires a multi-modal treatment plan under close supervision and coordination due to the complexity and severity of the patient's symptoms. Legal Status: Patient's legal status will be Emergency admission: 9.39. DSM-V Differential Diagnosis: Bipolar I Disorder (F31.0) Current or most recent episode depressed. Insurance Pre-Certification: Not Required, . Awaiting: transfer to [facility]. Social Work Consult: 06:00 Social Work Note: Per request of patient, ED MD & patient's 's Bennie (which is jl currently here for support), a message to have patient's returned home from [place] has been completed with Jhoana at the [facility]. Case Number is: [id number]. Vital Signs: 03:31 BP 96 / 53; Pulse 80; Resp 16; Temp 96.9(T); Pulse Ox 97% on R/A; Weight 54.43 kg (R); rw1 Height 5 ft. 1 in. (154.94 cm) (R); Pain 0/10; 06:16 BP 108 / 66; Pulse 84; Resp 16; Temp 98.2(TE); Pulse Ox 100% on R/A; Pain 0/10; rw1 14:03 BP 131 / 93; Pulse 105; Resp 18; Temp 97.6(O); Pulse Ox 100% on R/A; dpm 03:31 Body Mass Index 22.67 (54.43 kg, 154.94 cm) rw1 Vitals: 03:31 Log In Time N/A - ambulance arrival. rw1 ED Course: 03:23 Patient visited by Reji Trujillo PCA. kb5 03:23 [facility] [place] [facility] Physician. kb5 03:23 Patient moved to Waiting kb5 03:23 Patient moved to [facility] kb5 03:41 Triage Initiated nn1 03:42 Layla Grajeda MD is Attending Physician. fg 03:42 Patient visited by Layla Grajeda MD. fg 03:57 Patient visited by Ishmael Lema. tr 03:57 Acetaminophen Level Sent. rw1 03:57 Basic Metabolic Profile Sent. rw1 03:57 Complete Blood Count Sent. rw1 03:57 Ethyl Alcohol (ethanol) Sent. rw1 03:57 Liver Profile Sent. rw1 03:57 Salicylate Level Sent. rw1 03:57 Thyroid Stimulating Hormone Sent. rw1 03:59 Patient visited by LemaIshmael. tr 04:19 Patient visited by Ishmael Lema. tr 05:00 Patient visited by Ishmael Lema. tr 05:20 Patient visited by Ishmael Lema. tr 05:31 Patient visited by Ishmael Lema. tr 05:40 Drug Eval Toxicology ED Only Sent. rw1 05:42 Kevin Scott LPN is Primary Nurse. rw1 05:59 Patient visited by Ishmael Lema. tr 06:15 Patient visited by Ishmael Lema. tr 06:29 Patient visited by Ishmael Lema. tr 06:43 Patient visited by Ishmael Lema. tr 06:57 Patient visited by Ishmael Lema. tr 06:58 Blayne Preston, ARIAS is Primary Nurse. ml6 06:59 Attending Physician role handed off by Layla Grajeda MD pc 06:59 Jose C Silverio MD is Attending Physician. pc 07:06 Primary Nurse role handed off by Kevin Scott LPN deg 07:21 The patient / caregiver is instructed regarding the plan of care and ED course. ml6 07:24 Patient visited by Walter Bejarano. dpm 07:37 Patient visited by Walter Bejarano. dpm 07:45 Patient visited by Walter Bejarano. dpm 08:01 Patient visited by Walter Bejarano. dpm 08:21 Patient visited by Walter Bejarano. dpm 08:40 Patient visited by Walter Bejarano. dpm 08:46 ETHYL ALCOHOL (ETHANOL) Sent. mk4 08:46 BASIC METABOLIC PROFILE Sent. mk4 08:56 Patient visited by Walter Bejarano. dpm 09:13 Patient visited by Walter Bejarano. dpm 09:32 Patient visited by Walter Bejarano. dpm 09:51 Patient visited by Walter Bejarano. dpm 09:53 Patient moved to OBSERVATION pc 09:59 Patient visited by Walter Bejarano. dpm 10:15 Patient visited by Walter Bejarano. dpm 10:32 Patient visited by Walter Bejarano. dpm 11:03 Patient visited by Walter Bejarano. dpm 11:06 [facility] Payment Agreement was scanned into [employer] and attached to record. lg 11:26 Patient visited by Walter Bejarano. dpm 11:51 Patient visited by Walter Bejarano. dpm 12:32 Patient visited by Walter Bejarano. dpm 12:50 Patient visited by Walter Bejarano. dpm 13:13 Patient visited by Walter Bejarano. dpm 13:22 [facility] Legal paperwork was scanned into [employer] and attached to record. jfb 13:24 Patient moved to [facility] pc 13:25 Jose J Hayes is Hospitalizing Provider. pc 13:30 Patient visited by Walter Bejarano. dpm 13:46 Patient visited by Walter Bejarano. dpm 14:03 Patient visited by Walter Bejarano. dpm 14:19 Patient visited by Walter Bejarano. dpm 14:45 No IV's were initiated during this patient's visit. No procedures done that require mk4 assistance. 21:45 T-Sheet-- Draft Copy was scanned into [employer] and attached to record. klr Administered Medications: 05:39 Drug: Lidocaine 10 ml [lidocaine 20 mg/mL (2 %) injection solution (10 mL)] {Note: by rw1 Dr. Grajeda.} Route: Infiltration; 11:00 Drug: lamoTRIgine 200 mg [lamotrigine 25 mg tablet (8 tabs)] Route: PO; mk4 11:00 Drug: Topiramate 25 mg Route: PO; mk4 12:33 Drug: Acetaminophen 650 mg [acetaminophen 325 mg tablet (2 tabs)] Route: PO; mk4 Attachments: 13:22 E Legal paperwork jfb Order Results: Lab Order: Acetaminophen Level; SPEC'M 01/24/17 03:54 Test: ACETAMINOPHEN LEVEL; Value: < 2.0; Range: 10.0-30.0; Abnormal: Below low normal; Units: UG/ML; Status: F Lab Order: Basic Metabolic Profile; SPEC'M 01/24/17 03:54 Test: GLUCOSE, FASTING; Value: 122; Range: 70-105; Abnormal: Above high normal; Units: MG/DL; Status: F Test: BLOOD UREA NITROGEN; Value: 5; Range: 7-18; Abnormal: Below low normal; Units: MG/DL; Status: F Test: CREATININE FOR GFR; Value: 0.79; Range: 0.55-1.02; Units: MG/DL; Status: F Test: GLOMERULAR FILTRATION RATE; Value: > 60.0; Range: >60; Status: F Test: SODIUM LEVEL; Value: 147; Range: 136-145; Abnormal: Above high normal; Units: MEQ/L; Status: F Test: POTASSIUM SERUM; Value: 3.2; Range: 3.5-5.1; Abnormal: Below low normal; Units: MEQ/L; Status: F Test: CHLORIDE LEVEL; Value: 115; Range: 98-107; Abnormal: Above high normal; Units: MEQ/L; Status: F Test: CARBON DIOXIDE LEVEL; Value: 21; Range: 21-32; Units: MEQ/L; Status: F Test: ANION GAP; Value: 11; Range: 8-16; Units: MEQ/L; Status: F Test: CALCIUM LEVEL; Value: 7.7; Range: 8.5-10.1; Abnormal: Below low normal; Units: MG/DL; Status: F Test Note: ; Units are mL/min/1.73 m2 Chronic Kidney Disease Staging per NKF: Stage I & II GFR >=60 Normal to Mildly Decreased Stage III GFR 30-59 Moderately Decreased Stage IV GFR 15-29 Severely Decreased Stage V GFR <15 Very Little GFR Left ESRD GFR <15 on ICE CREAM MIXER Lab Order: Complete Blood Count; SPEC'M 01/24/17 03:54 Test: WHITE BLOOD COUNT; Value: 11.0; Range: 4.0-10.0; Abnormal: Above high normal; Units: K/mm3; Status: F Test: RED BLOOD COUNT; Value: 3.88; Range: 4.00-5.40; Abnormal: Below low normal; Units: M/mm3; Status: F Test: HEMOGLOBIN; Value: 12.7; Range: 12.0-16.0; Units: g/dl; Status: F Test: HEMATOCRIT; Value: 39.4; Range: 36.0-47.0; Units: %; Status: F Test: MEAN CORPUSCULAR VOLUME; Value: 101.4; Range: 80.0-96.0; Abnormal: Above high normal; Units: fl; Status: F Test: MEAN CORPUSCULAR HEMOGLOBIN; Value: 32.8; Range: 27.0-33.0; Units: pg; Status: F Test: MEAN CORPUSCULAR HGB CONC; Value: 32.3; Range: 32.0-36.5; Units: g/dl; Status: F Test: RED CELL DISTRIBUTION WIDTH; Value: 13.1; Range: 11.5-14.5; Units: %; Status: F Test: PLATELET COUNT, AUTOMATED; Value: 299; Range: 150-450; Units: k/mm3; Status: F Lab Order: Drug Eval Toxicology ED Only; SPEC'01/24/17 05:25 Test: AMPHETAMINES LEVEL URINE; Value: NEGATIVE; Range: NEGATIVE; Status: F Test: BARBITURATES URINE; Value: NEGATIVE; Range: NEGATIVE; Status: F Test: BENZODIAZEPINES URINE; Value: NEGATIVE; Range: NEGATIVE; Status: F Test: CANNABINOIDS URINE; Value: NEGATIVE; Range: NEGATIVE; Status: F Test: COCAINE METABOLITE URINE; Value: NEGATIVE; Range: NEGATIVE; Status: F Test: METHADONE URINE; Value: NEGATIVE; Range: NEGATIVE; Status: F Test: OPIATES URINE; Value: NEGATIVE; Range: NEGATIVE; Status: F Test: TRICYCLIC ANTIDEPRESS URINE; Value: NEGATIVE; Range: NEGATIVE; Status: F Test Note: ; ALL PRESUMPTIVE POSITIVE FINDINGS ARE UNCONFIRMED NORMAL VALUES THRESHOLD IN NG/ML AMPHETAMINES 1000 METHAMPHETAMINES 1000 BARBITURATES 300 BENZODIAZEPINES 300 CANNABINOIDS (THC) 50 COCAINE METABOLITE 300 METHADONE 300 OPIATES 300 PHENCYCLIDINE 25 TRICYCLIC ANTIDEPRESSANTS 1000 RESULTS ARE FOR MEDICAL PURPOSES ONLY. ALL URINE SPECIMENS WILL BE SAVED FOR 3 DAYS. IF CONFIRMATION OF A PRESUMPTIVE POSTIVE SCREEN RESULT IS DESIRED, CALL CHEMISTRY ([phone]) AND REQUEST URINE TO BE SENT TO REFERENCE LAB. FOR A LIST OF CLOSELY RELATED COMPOUNDS PLEASE CALL THE LAB. Lab Order: Ethyl Alcohol (ethanol); SPEC'M 01/24/17 03:54 Test: ETHYL ALCOHOL (ETHANOL); Value: 0.227; Range: 0.000-0.010; Abnormal: Above high normal; Units: %; Status: F Lab Order: Liver Profile; SPEC'M 01/24/17 03:54 Test: AST/SGOT; Value: 14; Range: 15-37; Abnormal: Below low normal; Units: U/L; Status: F Test: ALT/SGPT; Value: 18; Range: 12-78; Units: U/L; Status: F Test: ALKALINE PHOSPHATASE; Value: 60; Range: 45-117; Units: U/L; Status: F Test: BILIRUBIN,TOTAL; Value: 0.2; Range: 0.2-1.0; Units: MG/DL; Status: F Test: BILIRUBIN,DIRECT; Value: < 0.1; Range: 0.0-0.2; Units: MG/DL; Status: F Test: TOTAL PROTEIN; Value: 6.3; Range: 6.4-8.2; Abnormal: Below low normal; Units: GM/DL; Status: F Test: ALBUMIN; Value: 3.5; Range: 3.2-5.2; Units: GM/DL; Status: F Test: ALBUMIN/GLOBULIN RATIO; Value: 1.25; Range: 1.00-1.93; Status: F Lab Order: Salicylate Level; SPEC01/24/17 03:54 Test: SALICYLATE LEVEL; Value: 5.7; Range: 5.0-30.0; Units: MG/DL; Status: F Lab Order: Thyroid Stimulating Hormone; SPEC01/24/17 03:54 Test: THYROID STIMULATING HORMONE; Value: 1.250; Range: 0.358-3.740; Units: uIU/ML; Status: F Lab Order: BASIC METABOLIC PROFILE; SPEC01/24/17 08:44 Test: GLUCOSE, FASTING; Value: 114; Range: 70-105; Abnormal: Above high normal; Units: MG/DL; Status: F Test: BLOOD UREA NITROGEN; Value: 4; Range: 7-18; Abnormal: Below low normal; Units: MG/DL; Status: F Test: CREATININE FOR GFR; Value: 0.69; Range: 0.55-1.02; Units: MG/DL; Status: F Test: GLOMERULAR FILTRATION RATE; Value: > 60.0; Range: >60; Status: F Test: SODIUM LEVEL; Value: 148; Range: 136-145; Abnormal: Above high normal; Units: MEQ/L; Status: F Test: POTASSIUM SERUM; Value: 3.8; Range: 3.5-5.1; Units: MEQ/L; Status: F Test: CHLORIDE LEVEL; Value: 117; Range: 98-107; Abnormal: Above high normal; Units: MEQ/L; Status: F Test: CARBON DIOXIDE LEVEL; Value: 22; Range: 21-32; Units: MEQ/L; Status: F Test: ANION GAP; Value: 9; Range: 8-16; Units: MEQ/L; Status: F Test: CALCIUM LEVEL; Value: 8.3; Range: 8.5-10.1; Abnormal: Below low normal; Units: MG/DL; Status: F Test Note: ; Units are mL/min/1.73 m2 Chronic Kidney Disease Staging per NKF: Stage I & II GFR >=60 Normal to Mildly Decreased Stage III GFR 30-59 Moderately Decreased Stage IV GFR 15-29 Severely Decreased Stage V GFR <15 Very Little GFR Left ESRD GFR <15 on ICE CREAM MIXER Lab Order: ETHYL ALCOHOL (ETHANOL); SPEC'M 01/24/17 08:44 Test: ETHYL ALCOHOL (ETHANOL); Value: 0.143; Range: 0.000-0.010; Abnormal: Above high normal; Units: %; Status: F Outcome: 13:25 Decision to Hospitalize by Provider. 14:44 Discharge Assessment: Patient awake, alert and oriented x 3. No cognitive and/or 4 functional deficits noted. Patient verbalized understanding of disposition instructions. Discharge Assessment: patient administered narcotics - no. The following High Risk Discharge criteria are identified: None. Discharged to home ambulatory. Condition: good Condition: stable. No special radiology studies were completed. Property left with pt per RNmonae. 14:51 Patient left the ED. [facility] Signatures: Jose C Silverio MD MD pc Heather Jackson, Dairy Tester Unit deg Jd, Yonas, PSA PSA jl Carmen, Leonela, Reg Reg lg Lema, Ishmael tr Sonia,Kevin,INSTRUCTIONAL MEDIA SERVICES TECHNICIAN INSTRUCTIONAL MEDIA SERVICES TECHNICIAN rw1 Reji Trujillo, BUSINESS SYSTEMS ADVISOR BUSINESS SYSTEMS ADVISOR kb5 Blayne Preston RN RN ml6 Sharona Gutierrez, PSA PSA jfWalter Candelario dpm, Margaret, RN RN mk4 Nichole Flores,RN RN nn1 Layla Grajeda MD MD fg Redder, Kathie klr Corrections: (The following items were deleted from the chart) 09:42 03:42 Home Meds: Abilify 5 mg Oral tab 1 tab as needed; for agitation; [place] [id number] 09:42 03:42 Home Meds: lamotrigine 200 mg Oral tab 1 tab once daily; [place] [id number] Chart Complete MTDD
--- NOTE | 2017-01-26 15:54 | EDDOCDS ---
Physician Documentation [facility] Name: Albania Casiano Age: 36 yrs Sex: Female : 1980 Arrival Date: 01/24/2017 Time: 03:21 Bed [facility] Private MD: [place] [facility] [place]position: 01/24 13:24 Critical Care: Critical care not applicable. Disposition: 01/24/17 13:25 Hospitalization ordered by Jose J Hayes for Inpatient Admission. Preliminary diagnosis are Bipolar disorder, current episode depressed, moderate, Suicide attempt, Laceration without foreign body of left wrist. - Bed requested for Admit. - Status is Inpatient Admission. mk4 - Condition is Stable. - Problem is new. - Symptoms are unchanged. Historical: - Allergies: Darvocet-N 100 (Hives); Lyrica (Swelling); - Home Meds: 1. Abilify 5 mg , 1-2 tabs as needed at HS for sleep Oral tab 1 tab as needed for agitation 2. lamotrigine 200 mg Oral tab 1 tab in the am 3. topiramate 25 mg oral tab four times a day 4. ibuprofen 800 mg Oral tab 1 tab every 8 hours as needed - PMHx: ADHD; Arthritis; Bipolar disorder; Fibromyalgia; restless leg syndrome; - PSHx: ; - Social history: Smoking status: Patient uses tobacco products and is smoker, current status unknown. Patient intoxicated, disoriented with slurred speech . - Family history: Not pertinent. - : The pt / caregiver states he / she is not on anticoagulants. Home medication list is obtained from the patient, Unable to Verify Home Med List with the patient / caregiver. Note Unable to verify due to patient disorientation at this time. - Exposure Risk Screening:: None identified. Vital Signs: 03:31 BP 96 / 53; Pulse 80; Resp 16; Temp 96.9(T); Pulse Ox 97% on R/A; Weight 54.43 kg / 120 rw1 lbs (R); Height 5 ft. 1 in. (154.94 cm) (R); Pain 0/10; 06:16 BP 108 / 66; Pulse 84; Resp 16; Temp 98.2(TE); Pulse Ox 100% on R/A; Pain 0/10; rw1 14:03 BP 131 / 93; Pulse 105; Resp 18; Temp 97.6(O); Pulse Ox 100% on R/A; dpm 03:31 Body Mass Index 22.67 (54.43 kg, 154.94 cm) rw1 Procedures: 06:55 Laceration repair:. fg Laceration: 06:55 Wound Repair of 2cm ( 0.8in ) full thickness laceration to left arm. Linear shaped.. fg Distal neuro/vascular/tendon intact. Anesthesia: Local anesthetic administered with 2 mls of 1% lidocaine w/ Epi. Wound prep: Simple cleansing. Skin closed with 5 thin layer Ethilon using Simple interrupted sutures. Dressed with Bacitracin. Patient tolerated well. 06:55 Wound Repair of 3cm ( 1.2in ) subcutaneous laceration to left arm. Linear shaped.. fg Neuro:Intact distal to wound.. Vascular:Intact distal to wound. Tendon:Intact distal to wound. Anesthesia: Local anesthetic administered with 2 mls of 1% lidocaine w/ Epi. Wound prep: Simple cleansing by nurse. Skin closed with 3 x 5-0 Ethilon using Simple interrupted sutures. MDM: 03:44 Consult PFS/PSA/Validation Architect: Patient's case requires discussion with on-call fg Psychiatrist ordered. 03:44 PSA/PFS to call Nursing Java Application Engineer, to enter patient data on [place] Safe Act if patient fg involuntarily admitted or transferred for SI or HI ordered. 03:44 Confirm accurate psychiatric medication list and times of last dosage ordered. fg 03:44 Detain Pt Until Medically/PFS Cleared ordered. fg 03:45 Acetaminophen Level Ordered. EDMS 03:45 Basic Metabolic Profile Ordered. EDMS 03:45 Complete Blood Count Ordered. EDMS 03:45 Drug Eval Toxicology ED Only Ordered. EDMS 03:45 Ethyl Alcohol (ethanol) Ordered. EDMS 03:45 Liver Profile Ordered. EDMS 03:45 Salicylate Level Ordered. EDMS 03:45 Thyroid Stimulating Hormone Ordered. EDMS 04:45 Lidocaine 20 mg/mL (2 %) 10 ml Infiltration once; to bedside ordered. fg 05:47 REGULAR DIET PLASTIC CLIFTON+DIET ordered. EDMS 06:59 Awaiting: The patient is awaiting psychiatric admission or transfer. All labs and pc investigations have been reviewed. The vital signs have been reviewed. The patient remains medically cleared for disposition. 07:01 Acetaminophen Level Reviewed. pc 07:01 Basic Metabolic Profile Reviewed. pc 07:01 Complete Blood Count Reviewed. pc 07:01 Ethyl Alcohol (ethanol) Reviewed. pc 07:01 Liver Profile Reviewed. pc 07:01 Drug Eval Toxicology ED Only Reviewed. pc 07:01 Salicylate Level Reviewed. pc 07:01 Thyroid Stimulating Hormone Reviewed. pc 08:29 Redraw Labs ordered. pc 08:30 Redraw Labs complete. deg 08:33 BASIC METABOLIC PROFILE Ordered. EDMS 08:33 ETHYL ALCOHOL (ETHANOL) Ordered. EDMS 09:21 BASIC METABOLIC PROFILE Reviewed. pc 09:21 ETHYL ALCOHOL (ETHANOL) Reviewed. pc 09:46 Financial registration complete. lg 09:53 lamoTRIgine 200 mg PO once ordered. mk4 09:53 Topiramate 25 mg PO once ordered. mk4 11:06 [facility] Payment Agreement was scanned into [employer] and attached to record. lg 11:46 PSA/PFS to call Nursing Java Application Engineer, to enter patient data on [facility] Safe Act if patient [facility] involuntarily admitted or transferred for SI or HI complete. 11:46 Consult PFS/PSA/Validation Architect: Patient's case requires discussion with on-call [facility] Psychiatrist complete. 11:47 REGULAR DIET PLASTIC CLIFTON+DIET ordered. EDMS 12:25 Acetaminophen Tablet 650 mg PO once ordered. 4 13:17 Admit to [facility]: ordered. EDMS 13:22 [facility] Legal paperwork was scanned into [employer] and attached to record. jfb 13:24 [place] Safe Act reporting: The patient poses a significant risk to self or others, and PSA/PFS has notified the Nursing Java Application Engineer and he/she will complete the required data technician. The patient has been re-examined and re-evaluated. There is no appreciated change of the patient's symptoms at this time. Disposition: The historical points, examination findings, and any diagnostic results supporting the provided diagnosis, were discussed with the patient or legal guardian. The need for further work-up and/or treatment in the hospital was explained. 21:45 T-Sheet-- Draft Copy was scanned into [employer] and attached to record. klr Administered Medications: 05:39 Drug: Lidocaine 10 ml [lidocaine 20 mg/mL (2 %) injection solution (10 mL)] {Note: by rw1 Dr. Grajeda.} Route: Infiltration; 11:00 Drug: lamoTRIgine 200 mg [lamotrigine 25 mg tablet (8 tabs)] Route: PO; 4 11:00 Drug: Topiramate 25 mg Route: PO; 4 12:33 Drug: Acetaminophen 650 mg [acetaminophen 325 mg tablet (2 tabs)] Route: PO; 4 Signatures: Dispatcher [employer] Jose C Tena MD MD pc Murray, Heather, Geropsychologist Unit deg Leonela Morales, Reg Reg lg Workman,Kevin,FOLLOW UP CLERK FOLLOW UP CLERK rw1 Sharona Gutierrez, PSA PSA jfb Kasey Mcdaniel RN RN 4 Nichole FloresRN RN nn1 Layla Grajeda MD MD fg Redder, Kathie klr The chart was reviewed and I authenticate all verbal orders and agree with the evaluation and treatment provided.Corrections: (The following items were deleted from the chart) 08:28 03:44 Consult PFS/PSA/Validation Architect ordered. fg 09:42 03:42 Home Meds: Abilify 5 mg Oral tab 1 tab as needed; for agitation; [place] [id number] 09:42 03:42 Home Meds: lamotrigine 200 mg Oral tab 1 tab once daily; [place] [id number] Attachments: 11:06 [facility] Payment Agreement lg 21:45 T-Sheet-- Draft Copy klr Chart Complete MTDD
--- NOTE | 2017-01-26 17:50 | ECGEPIP ---
Stationary ECG Study [facility] Test Date: 2017-01-26 Pat Name: OSWALDO WILCOX Department: Room: [place] [address] Gender: F [employer] Supervisor: LEON : 1980 Requested By: Neda Delgado Order Number: [id number] Reading MD: Bubba Genao Measurements Intervals [place] Rate: 87 P: 51 MD: 123 QRS: 65 QRSD: 100 T: 48 QT: 359 QTc: 434 Interpretive Statements SINUS RHYTHM COMPARED TO THE LAST 2 TRACINGS IN THE SYSTEM, NO SIGNIFICANT CHANGES Electronically Signed On 01-26-2017 17:49:59 EST by Bubba Genao
[2017-01-26 18:20] VITALS: BP 127/76
--- NOTE | 2017-01-26 19:49 | IPNPDOC ---
[facility] Progress Note Progress Note DATE OF SERVICE: 01/26/17 Subjective: Patient pleasant and engaged in interview. Patient is calm and cooperative. Patient reports increasing mood since admission. Patient denies alcohol w/d symptoms. She denies SI/HI and AH/VH. Patient reports fair sleep and appetite. Patient reports med compliance and denies med s/e's. Objective: VITALS: wnl MENTAL STATUS EXAMINATION: Patient looks stated age, in NAD, bright, calm and cooperative. Has good eye contact. Speech RRR. Mood is euthymic Affect is full. No delusions or hallucinations noted. Memory is fair. The patient is fully oriented. Associations are intact. Thinking is linear. Thought content is appropriate. Patient denies suicidal or homicidal ideation during the interview. Insight and judgment are fair. ASSESSMENT: 1. Depressive disorder, unspecified. 2. Alcohol use d/o. PLAN: 1. Continue close observation. 2. Continue current psychotropic med regimen. 3. Continue alcohol detox protocol. Continue Librium taper. 4. Continue vitamins. 5. Continue with individual and group therapy. Time spent: 30 minutes Vital Signs Vital Signs Date Time Temp Pulse Resp B/P Pulse Ox O2 Delivery O2 Flow Rate FiO2 01/26/17 18:20 98.9 92 16 127/76 01/24/17 20:00 97 Room Air Laboratory Data 24H Labs Laboratory Tests 2 01/26/17 06:52: Anion Gap 8, Blood Urea Nitrogen 8#, Creatinine 0.81, Sodium Level 141, Potassium Level 4.2, Chloride Level 109H, Carbon Dioxide Level 24, Calcium Level 8.7, Glomerular Filtration Rate > 60.0 CBC/BMP Laboratory Tests 01/26/17 06:52 Calcium Level 8.7, Red Blood Count 4.04, Mean Corpuscular Volume 99.9 H, Mean Corpuscular Hemoglobin 33.7 H, Mean Corpuscular Hemoglobin Concent 33.7, Red Cell Distribution Width 12.8 Current Medications Current Medications Acetaminophen (Tylenol Arthritis Er) 650 mg Q8HP PRN PO PAIN Last administered on 01/26/17t 16:25; Start 01/25/17 at 11:45; Stop 02/24/17 at 11:44 Al Hydrox/Mg Hydrox/Simethicone (Mylanta) 30 ml Q4HP PRN PO HEARTBURN/ INDIGESTION; Start 01/24/17 at 16:30; Stop 02/23/17 at 16:29 Aripiprazole (AbiLIFY) 5 mg DAILY PO Last administered on 01/26/17 08:59; Start 01/24/17 at 09:00; Stop 02/23/17 at 08:59 Chlordiazepoxide (Librium) 25 mg TIDP PRN PO alcohol withdrawal; Start at 16:30; Stop 01/31/17 at 16:29 Folic Acid (Folic Acid) 1 mg DAILY PO Last administered on 01/26/17 08:59; Start 01/24/17 at 09:00; Stop 02/23/17 at 08:59 Home Med (Med Rec Complete!) ASDIRECTED XX ; Start 01/24/17 at 14:15; Stop at 14:17; Status DC Ibuprofen (Advil) 800 mg TIDP PRN PO MODERATE PAIN (PS 5-7) Last administered on 01/25/17 08:38; Start 01/24/17 at 16:30; Stop 01/25/17 at 11:33; Status DC Lamotrigine (LaMICtal) 200 mg DAILY PO Last administered on 01/26/17 09:00; Start 01/25/17 at 09:00; Stop 02/24/17 at 08:59 Magnesium Hydroxide (Milk Of Magnesia) 30 ml DAILYPRN PRN PO CONSTIPATION; Start 01/24/17 at 16:30; Stop 02/23/17 at 16:29 Multivitamins (Theragram-M) 1 tab DAILY PO Last administered on 01/26/17 08:59 ; Start 01/24/17 at 09:00; Stop 02/23/17 at 08:59 Nicotine (Nicoderm Cq 21mg) 1 patch DAILY TD Last administered on 01/26/17 09: 00; Start 01/24/17 at 09:00; Stop 02/23/17 at 08:59 Thiamine HCl (Thiamine HCl) 100 mg BID PO Last administered on 01/26/17 08:59 ; Start 01/25/17 at 09:00; Stop 01/27/17 at 12:00 Topiramate (TopAMAX) 50 mg BID PO Last administered on 01/26/17 08:59; Start 01/24/17 at 21:00; Stop 02/23/17 at 20:59 Trazodone HCl (Desyrel) 50 mg QHSP PRN PO INSOMNIA Last administered on 21:17; Start 01/24/17 at 16:30; Stop 02/23/17 at 16:29 Allergies Coded Allergies: Acetaminophen (Verified Allergy, Intermediate, VOMIT, 01/20/15) Pregabalin (Verified Adverse Reaction, Intermediate, STOMACH SWELLS, ) Pollen Extract (Verified Adverse Reaction, Mild, NASAL CONGESTION, 04/01/14) JELENA KERN MD Jan 26, 2017 19:49 17at 21:17; Start 01/24/17 at 16:30; Stop 02/23/17 at 16:29 Allergies Coded Allergies: Acetaminophen (Verified Allergy, Intermediate, VOMIT, 01/20/15) Pregabalin (Verified Adverse Reaction, Intermediate, STOMACH SWELLS, ) Pollen Extract (Verified Adverse Reaction, Mild, NASAL CONGESTION, 04/01/14) JELENA KERN MD Jan 26, 2017 19:49
[2017-01-27 06:42] VITALS: BP 126/74
[2017-01-27] MEDS: lamoTRIgine 100MG TAB PO SCH (08:01)
[2017-01-27] MEDS: THIAMINE 100 MG TAB PO SCH (08:01)
[2017-01-27] MEDS: FOLIC ACID 1 MG TAB PO SCH (08:01)
[2017-01-27] MEDS: MULTIVITAMINS/MINERALS THERAP 1 TAB PO SCH (08:01)
[2017-01-27] MEDS: TOPIRAMATE (TopAMAX) 25 MG TAB PO SCH ×2 (08:02→20:39)
[2017-01-27] MEDS: ACETAMINOPHEN 650MG ER TAB (TYLENOL ARTHRITIS) PO PRN ×2 (08:07→16:56)
[2017-01-27] MEDS: NICOTINE 21MG/24HR 1 EA TRANSDERMAL TD SCH (08:08)
--- NOTE | 2017-01-27 15:02 | IPNPDOC ---
[facility] Progress Note Progress Note DATE OF SERVICE: 01/27/17 Subjective: Patient is calm and cooperative with interview. Patient reports ongoing improved mood since admission. Patient denies alcohol w/d symptoms. She denies SI/HI and AH/VH. Patient reports fair sleep and appetite. Patient reports med compliance and denies med s/e's. Objective: VITALS: wnl MENTAL STATUS EXAMINATION: Patient looks stated age, in NAD, bright, calm and cooperative. Has good eye contact. Speech RRR. Mood is euthymic Affect is full. No delusions or hallucinations noted. Memory is fair. The patient is fully oriented. Associations are intact. Thinking is linear. Thought content is appropriate. Patient denies suicidal or homicidal ideation during the interview. Insight and judgment are fair. ASSESSMENT: 1. Depressive disorder, unspecified. 2. Alcohol use d/o. PLAN: 1. Continue close observation. 2. Continue current psychotropic med regimen. 3. Continue alcohol detox protocol. Continue Librium taper. 4. Continue vitamins. 5. Continue with individual and group therapy. Time spent: 30 minutes Vital Signs Vital Signs Date Time Temp Pulse Resp B/P Pulse Ox O2 Delivery O2 Flow Rate FiO2 01/27/17 06:42 97.9 77 16 126/74 01/24/17 20:00 97 Room Air Current Medications Current Medications Acetaminophen (Tylenol Arthritis Er) 650 mg Q8HP PRN PO PAIN Last administered on 01/27/17 08:07; Start 01/25/17 at 11:45; Stop 02/24/17 at 11:44 Al Hydrox/Mg Hydrox/Simethicone (Mylanta) 30 ml Q4HP PRN PO HEARTBURN/ INDIGESTION; Start 01/24/17 at 16:30; Stop 02/23/17 at 16:29 Aripiprazole (AbiLIFY) 5 mg DAILY PO Last administered on 01/27/17 08:01; Start 01/24/17 at 09:00; Stop 02/23/17 at 08:59 Chlordiazepoxide (Librium) 25 mg BIDP PRN PO alcohol withdrawal; Start at 16:30; Stop 02/03/17 at 16:29 Chlordiazepoxide (Librium) 25 mg TIDP PRN PO alcohol withdrawal; Start at 16:30; Stop 01/26/17 at 21:36; Status DC Folic Acid (Folic Acid) 1 mg DAILY PO Last administered on 01/27/17 08:01; Start 01/24/17 at 09:00; Stop 02/23/17 at 08:59 Home Med (Med Rec Complete!) ASDIRECTED XX ; Start 01/24/17 at 14:15; Stop at 14:17; Status DC Ibuprofen (Advil) 800 mg TIDP PRN PO MODERATE PAIN (PS 5-7) Last administered on 01/25/17 08:38; Start 01/24/17 at 16:30; Stop 01/25/17 at 11:33; Status DC Lamotrigine (LaMICtal) 200 mg DAILY PO Last administered on 01/27/17 08:01; Start 01/25/17 at 09:00; Stop 02/24/17 at 08:59 Magnesium Hydroxide (Milk Of Magnesia) 30 ml DAILYPRN PRN PO CONSTIPATION; Start 01/24/17 at 16:30; Stop 02/23/17 at 16:29 Multivitamins (Theragram-M) 1 tab DAILY PO Last administered on 01/27/17 08:01 ; Start 01/24/17 at 09:00; Stop 02/23/17 at 08:59 Nicotine (Nicoderm Cq 21mg) 1 patch DAILY TD Last administered on 01/27/17 08: 08; Start 01/24/17 at 09:00; Stop 02/23/17 at 08:59 Thiamine HCl (Thiamine HCl) 100 mg BID PO Last administered on 01/27/17 08:01 ; Start 01/25/17 at 09:00; Stop 01/27/17 at 12:00; Status DC Topiramate (TopAMAX) 50 mg BID PO Last administered on 01/27/17 08:02; Start 01/24/17 at 21:00; Stop 02/23/17 at 20:59 Trazodone HCl (Desyrel) 50 mg QHSP PRN PO INSOMNIA Last administered on 21:17; Start 01/24/17 at 16:30; Stop 02/23/17 at 16:29 Allergies Coded Allergies: Acetaminophen (Verified Allergy, Intermediate, VOMIT, 01/20/15) Pregabalin (Verified Adverse Reaction, Intermediate, STOMACH SWELLS, ) Pollen Extract (Verified Adverse Reaction, Mild, NASAL CONGESTION, 04/01/14) JELENA KERN MD Jan 27, 2017 15:02 17at 21:17; Start 01/24/17 at 16:30; Stop 02/23/17 at 16:29 Allergies Coded Allergies: Acetaminophen (Verified Allergy, Intermediate, VOMIT, 01/20/15) Pregabalin (Verified Adverse Reaction, Intermediate, STOMACH SWELLS, ) Pollen Extract (Verified Adverse Reaction, Mild, NASAL CONGESTION, 04/01/14) JELENA KERN MD Jan 27, 2017 15:02
[2017-01-27] MEDS ORDERED: chlordiazePOXIDE 25 MG CAP PO PRN (16:30)
[2017-01-27 18:00] VITALS: BP 131/79
[2017-01-28 06:39] VITALS: BP 125/78
[2017-01-28] MEDS: FOLIC ACID 1 MG TAB PO SCH (08:10)
[2017-01-28] MEDS: lamoTRIgine 100MG TAB PO SCH (08:10)
[2017-01-28] MEDS: TOPIRAMATE (TopAMAX) 25 MG TAB PO SCH (08:10)
[2017-01-28] MEDS: NICOTINE 21MG/24HR 1 EA TRANSDERMAL TD SCH (08:11)
[2017-01-28] MEDS: MULTIVITAMINS/MINERALS THERAP 1 TAB PO SCH (08:11)
[2017-01-28] MEDS ORDERED: NICO21PAT TD (10:59)
[2017-01-28] MEDS: ACETAMINOPHEN 650MG ER TAB (TYLENOL ARTHRITIS) PO PRN (11:06)
[2017-01-28] MEDS ORDERED: LAMO10TA PO (11:21)
[2017-01-28] MEDS ORDERED: ARIP5TA PO (11:21)
--- NOTE | 2017-01-28 17:22 | MHDS ---
DATE OF ADMISSION: 01/24/2017 DATE OF DISCHARGE: 01/28/2017 LEGAL STATUS AT ADMISSION: 9.39 legal status. HISTORY OF PRESENT ILLNESS: 36-year-old female with bipolar type 2 disorder and attention deficit hyperactivity disorder (ADHD) admitted to our unit on a 9.39 legal status. According to the records, patient came to the emergency department (ED) to be evaluated for a suicidal attempt by cutting. She required sutures on her wrist. Patient was intoxicated. Her blood alcohol level at admission was 0.22. 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 Her is deployed, leaving on 01/18/2017. According to the record, he confessed that he has been having an on-line relationship with another woman. The patient stated that she was very angry and last night prior to admission she was drinking and ended up cutting herself. During the interview at our unit, patient was anxious, labile, with pressured speech. She was less angry and agitated than at the moment of admission. Patient was regretting what she did but she also minimized all the events that led to her admission. She was asking to be discharged as soon as possible. She also said that her is returning home and she would like to be with him. I met this patient in November 2014. She stated that she has been more stable since she has been placed on Lamictal 200 mg daily and Abilify 5 mg nightly. During the interview, there is no evidence of psychosis, no auditory or visual hallucinations or delusions. Again, she was minimizing all the symptoms in order to be discharged as soon as possible. LABORATORY DATA AT ADMISSION: CBC showed white blood cells of 11, red blood cells of 3.88, MCV of 101.4. CMP showed sodium of 147, potassium of 3.2, rest was unremarkable. test negative. TSH was within normal limits. Urine drug screen (UDS) was negative. Blood alcohol level was 0.22. HOSPITAL COURSE: Patient was admitted and started on her prior to admission medications, Lamictal 200 mg by mouth daily and Abilify 5 mg by mouth daily, also on Topamax 50 mg by mouth twice a day and Librium as needed for alcohol withdrawal, but she did not take any of the dosage of the Librium. Patient's mood improved rather fast in a 3 day hospitalization. Patient, during the interview today, is calm and cooperative, is denying suicidal or homicidal ideation, is denying auditory or visual hallucinations or delusions. Patient has been interacting well with patients and staff. She is able to smile. No psychomotor retardation. She is motivated for treatment and would like to be discharged. A meeting with her was held before discharge. Everything went well so she was discharged in a stable condition. MEDICATIONS AT DISCHARGE: - Lamictal 200 mg by mouth daily - Abilify 5 mg by mouth daily MENTAL STATUS EXAMINATION AT DISCHARGE: Patient is dressed in [facility]. Patient is calm and cooperative. Her speech is clear, coherent, with normal rate and is spontaneous. Patient has good eye contact. Mood is euthymic. Affect is appropriate and congruent with mood. Patient is oriented to time, place, person, and situation. Maintains attention and concentration correctly. Instant recall, recent, and remote memory are intact. Thought processes are coherent, logical, and goal-directed. Patient does not have auditory or visual hallucinations. Patient does not have paranoid, persecutory, somatic, grandiose, or methodist delusions. Patient denies suicidal or homicidal ideation. Judgment and insight are fair. DISCHARGE DIAGNOSES: AXIS I: Bipolar type 2 disorder, depressive episode. Attention deficit hyperactivity disorder (ADHD) by history. Alcohol abuse. AXIS II: Deferred. AXIS III: Status post suicide attempt by cutting her left wrist. Alcohol intoxication. INSTRUCTIONS TO THE PATIENT: Patient is to continue taking her medications as prescribed in followup appointments. She is advised to maintain absolute sobriety from drugs and alcohol. Patient has scheduled appointments for psychotropic medication management, individual psychotherapy, and primary care physician.
== END 2017-01-28 12:02 | disposition home or self-care (01) | DRG 885 ==
LOC: M ED 03:21 → M PSY 14:55
PROVIDERS: ADMIT Psychiatry & Neurology Psychiatry; ATTEND Psychiatry & Neurology Psychiatry
DX: F31.81 Bipolar II disorder (principal); E87.0 Hyperosmolality and hypernatremia; F90.9 Attention-deficit hyperactivity disorder, unspecified type; F10.129 Alcohol abuse with intoxication, unspecified; G25.81 Restless legs syndrome; M79.7 Fibromyalgia; F17.200 Nicotine dependence, unspecified, uncomplicated; G43.909 Migraine, unspecified, not intractable, without status migrainosus

== ENCOUNTER 2017-04-22 16:37 | Emergency (ER) | payer OTHER ==
[~2017-04-22] VITALS: Ht 154.9 cm; Wt 54.9 kg
[~2017-04-22 16:37] MED LIST changes: +ARIP1TAB6 PO; +ARIP5TA PO; +DEPO150I IM; +IBUP800T23 PO; +NICO21PAT TD; +SERT25TA PO; -SERT25TA85 PO; +VITMTA PO
[2017-04-22] MEDS ORDERED: TOPI50TA4 (17:05)
[2017-04-22] MEDS ORDERED: DIAZ5TAB (17:05)
[2017-04-22] MEDS ORDERED: TOPI1TAB31 (17:05)
[2017-04-22] MEDS ORDERED: LAMO200T (17:05)
[2017-04-22] MEDS ORDERED: LITH45TASA (17:05)
[2017-04-22] MEDS ORDERED: CONC27TA4 (17:05)
[2017-04-22] MEDS ORDERED: DULO1CAP3 (17:05)
[2017-04-22 18:06] LABS: VENOUS O2 SATURATION 57.6 % (60.0-80.0); VENOUS PARTIAL PRESSURE CO2 43.1 mmHg (38.0-50.0); VENOUS PARTIAL PRESSURE O2 27.6 mmHg (30.0-50.0); VENOUS STANDARD HCO3 22.7 MEQ/L; VENOUS TOTAL CO2 25.7 MEQ/L (24.0-28.0)
[2017-04-22 18:07] LABS: BASO % 0.4 % (0.0-1.0); EOS # 0.2 K/mm3 (0.0-0.50); EOS % 1.8 % (0.0-3.0); LARGE UNSTAINED CELL # 0.2 K/mm3 (0.0-0.4); LARGE UNSTAINED CELL % 1.5 % (0.0-4.0); LYMPH # 4.8 K/mm3 (1.5-4.5); LYMPH % 32.4 % (24.0-44.0); MEAN CORPUSCULAR HEMOGLOBIN 33.3 pg (27.0-33.0); MEAN CORPUSCULAR HGB CONC 33.3 g/dl (32.0-36.5); MEAN CORPUSCULAR VOLUME 100.1 fl (80.0-96.0); MONO # 0.6 K/mm3 (0.0-0.8); MONO % 3.9 % (0.0-5.0); NEUTROPHILS # 8.6 K/mm3 (1.8-7.7); NEUTROPHILS % 60.1 % (36.0-66.0); PLATELET COUNT, AUTOMATED 362 k/mm3 (150-450); RED CELL DISTRIBUTION WIDTH 13.2 % (11.5-14.5); WHITE BLOOD COUNT 14.3 K/mm3 (4.0-10.0)
[2017-04-22 18:23] LABS: CONTROL LINE HCG INT CTR LINE PRESENT
[2017-04-22 18:25] LABS: OSMOLALITY SERUM 292 MOSM/KG (275-295)
[2017-04-22 18:36] LABS: ALBUMIN/GLOBULIN RATIO 1.43 (1.00-1.93); ALKALINE PHOSPHATASE 65 U/L (45-117); ALT/SGPT 21 U/L (12-78); ANION GAP 10 MEQ/L (8-16); AST/SGOT 15 U/L (15-37); BILIRUBIN,DIRECT 0.1 MG/DL (0.0-0.2); BILIRUBIN,TOTAL 0.5 MG/DL (0.2-1.0); BLOOD UREA NITROGEN 12 MG/DL (7-18); CALCIUM LEVEL 8.5 MG/DL (8.5-10.1); CARBON DIOXIDE LEVEL 24 MEQ/L (21-32); CHLORIDE LEVEL 107 MEQ/L (98-107); CREATININE FOR GFR 0.85 MG/DL (0.55-1.02); GLOMERULAR FILTRATION RATE > 60.0 (>60); GLUCOSE, FASTING 87 MG/DL (70-105); POTASSIUM SERUM 3.9 MEQ/L (3.5-5.1); SODIUM LEVEL 141 MEQ/L (136-145); TOTAL PROTEIN 6.8 GM/DL (6.4-8.2)
[2017-04-22 18:37] LABS: LITHIUM LEVEL < 0.20 MEQ/L (0.60-1.20)
--- NOTE | 2017-04-22 18:49 | REP ---
Clinical: Altered mental status . Comparison: 05/21/2014 . Findings: The ventricles, sulci, and cisterns are normal in position and appearance. Villafuerte-white differentiation is maintained. No acute intracranial hemorrhage, mass/mass effect, pathology or trauma/injury. No evidence for acute infarction. No extra-axial fluid collection. Calvarium is intact. Paranasal sinuses and mastoid air cells are clear. Impression: Normal noncontrast head CT. No evidence for acute intracranial pathology or trauma/injury. Signed by Ruperto Snow MD 04/22/2017 06:41 P
[2017-04-22 20:29] LABS: METHADONE URINE NEGATIVE (NEGATIVE)
[2017-04-22 21:33] VITALS: BP 107/71
--- NOTE | 2017-04-22 21:44 | ECGEPIP ---
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
== END 2017-04-22 21:35 | disposition home or self-care (01) ==
LOC: M ED 19:22
DX: R41.0 Disorientation, unspecified (principal); F90.9 Attention-deficit hyperactivity disorder, unspecified type; F31.9 Bipolar disorder, unspecified; G89.29 Other chronic pain; F17.200 Nicotine dependence, unspecified, uncomplicated; J30.1 Allergic rhinitis due to pollen; Z91.5 Personal history of self-harm; Z90.89 Acquired absence of other organs; Z79.899 Other long term (current) drug therapy; Z88.8 Allergy status to other drugs, medicaments and biological substances
CPT/HCPCS: 36600; 70450; 80048; 80076; 80178; 80306; 82550; 82803; 83930; 84443; 84703; 85025; 93005; 93041; 99284; G0480

== ENCOUNTER 2017-12-06 16:19 | Emergency (ER) | payer OTHER ==
[2017-12-06 17:07] LABS: BASO # 0.1 10^3/uL (0.0-0.2); BASO % 0.3 % (0.0-1.0); EOS # 0.2 10^3/uL (0.0-0.50); EOS % 1.3 % (0.0-3.0); HEMATOCRIT 37.9 % (36.0-47.0); HEMOGLOBIN 12.9 g/dl (12.0-16.0); IMMATURE GRANULOCYTE # 0.1 10^3/uL (0-0); IMMATURE GRANULOCYTE % 0.7 % (0-0); LYMPH # 3.4 10^3/uL (1.5-4.5); MEAN CORPUSCULAR HEMOGLOBIN 33.2 pg (27.0-33.0); MEAN CORPUSCULAR VOLUME 97.4 fl (80.0-96.0); MONO # 1.3 10^3/uL (0.0-0.8); MONO % 7.6 % (0.0-5.0); NEUTROPHILS # 11.8 10^3/uL (1.8-7.7); NEUTROPHILS % 70.1 % (36.0-66.0); PLATELET COUNT, AUTOMATED 421 10^3/uL (150-450); RED BLOOD COUNT 3.89 10^6/uL (4.00-5.40); RED CELL DISTRIBUTION WIDTH 14.2 % (11.5-14.5); WHITE BLOOD COUNT 16.8 10^3/uL (4.0-10.0)
[2017-12-06] MEDS: PANTOPRAZOLE 40MG INJ (PROTONIX) (C9113) IV (17:12)
[2017-12-06] MEDS: NS 1,000 ML IV (17:12)
[2017-12-06] MEDS: ONDANSETRON 4MG/2ML VIAL (J2405) IV (17:12)
[2017-12-06] MEDS: MORPHINE 2 MG/ML 1ML SYRINGE IV (17:12)
[2017-12-06] MEDS: KETOROLAC 30 MG/ML VIAL (J1885) IV (17:12)
[2017-12-06 17:24] LABS: INR 0.95; PROTHROMBIN TIME 12.8 SECONDS (12.4-14.5)
[2017-12-06 17:27] LABS: ALBUMIN 3.4 GM/DL (3.2-5.2); ALBUMIN/GLOBULIN RATIO 0.94 (1.00-1.93); ALKALINE PHOSPHATASE 90 U/L (45-117); ALT/SGPT 14 U/L (12-78); AMYLASE 35 U/L (25-115); ANION GAP 6 MEQ/L (8-16); AST/SGOT 13 U/L (7-37); BILIRUBIN,DIRECT < 0.1 MG/DL (0.0-0.2); BILIRUBIN,TOTAL 0.2 MG/DL (0.2-1.0); BLOOD UREA NITROGEN 8 MG/DL (7-18); CALCIUM LEVEL 8.8 MG/DL (8.5-10.1); CARBON DIOXIDE LEVEL 29 MEQ/L (21-32); CHLORIDE LEVEL 106 MEQ/L (98-107); CREATININE FOR GFR 0.51 MG/DL (0.55-1.02); GLOMERULAR FILTRATION RATE > 60.0 (>60); GLUCOSE, FASTING 85 MG/DL (70-105); LIPASE 170 U/L (73-393); POTASSIUM SERUM 3.9 MEQ/L (3.5-5.1); SODIUM LEVEL 141 MEQ/L (136-145)
[2017-12-06 17:30] LABS: CONTROL LINE HCG INT CTR LINE PRESENT; HCG, SERUM QUALITATIVE NEGATIVE (NEGATIVE)
[2017-12-06 17:32] LABS: CALCIUM OXALATE CRYSTALS RFX SMALL; KETONE, URINE AUTO RFX NEGATIVE (NEGATIVE); LEUKOCYTE ESTERASE UR AUTO RFX NEGATIVE (NEGATIVE); MUCUS, URINE RFX SMALL (NEGATIVE); NITRITE, URINE AUTO RFX NEGATIVE (NEGATIVE); RBC, URINE AUTO RFX 1 /HPF (0-3); SPECIFIC GRAVITY UR AUTO RFX 1.006 (1.002-1.035); SQUAM EPITHELIAL CELL UR AURFX 1 /HPF (0-6); WBC, URINE AUTO RFX 1 /HPF (0-3)
== END 2017-12-06 18:50 | disposition home or self-care (01) ==
LOC: M ED 16:19
DX: R10.9 Unspecified abdominal pain (principal); N20.0 Calculus of kidney; G43.909 Migraine, unspecified, not intractable, without status migrainosus; F17.200 Nicotine dependence, unspecified, uncomplicated; Z79.899 Other long term (current) drug therapy; Z88.8 Allergy status to other drugs, medicaments and biological substances
CPT/HCPCS: C9113

== ENCOUNTER 2019-03-10 11:44 | Emergency (ER) | payer OTHER ==
[~2019-03-10] VITALS: Ht 154.9 cm; Wt 51.4 kg
[2019-03-10 11:44] VITALS: BP 128/86
[~2019-03-10 11:44] MED LIST changes: -/BACL20TA PO; +ABIL1TAB11 PO; +ABIL1TAB13 PO; -ABIL2TAB2 PO; -ABIL5TAB5 PO; -ARIP5TA PO; +BACL1TAB9 PO; -CELE-19 PO; +CELE1CAP4 PO; -CLON0.5T PO; +CLON0.5T8 PO; +CONC27TA4; +DIAZ5TAB; +DULO1CAP3; +HYDR-3715 PO; +IBUP1TAB7 PO; -IBUP800T23 PO; +LAMI1TAB9 PO; -LAMI200T3 PO; +LAMO100T80 PO; -LAMO10TA PO; +LAMO200T2 PO; -LIDO5DIS36 TD; +LIDO5DIS41 TD; +LITH45TASA; -METH-107 PO; +METH1TAB40 PO; -PERC10TA17 PO; +PERC10TA26 PO; -PROA1AER IN; +PROAAER10 IN; -SERT25TA PO; +SERT25TA85 PO; +TOPA1TAB PO; -TOPA25TA10 PO; +TOPI100T9; +TOPI50TA9; +TRAZ-160 PO; -TRAZ50TA4 PO; +ZOFR4TAB14 PO
[2019-03-11] MEDS ORDERED: IBUP-1114 PO (15:57)
[2019-03-11] MEDS ORDERED: ACET1TAB55 PO (15:57)
[2019-03-11] MEDS ORDERED: CYCL10TA PO (17:49)
== END 2019-03-10 14:30 | disposition left against medical advice (07) ==
LOC: M ED 11:44
DX: Z53.21 Procedure and treatment not carried out due to patient leaving prior to being seen by health care provider (principal)

== ENCOUNTER 2019-03-11 15:41 | Emergency (ER) | payer OTHER ==
[~2019-03-11] VITALS: Ht 154.9 cm; Wt 51.6 kg
[2019-03-11] MEDS ORDERED: IBUP-1114 PO (15:57)
[2019-03-11] MEDS ORDERED: ACET1TAB55 PO (15:57)
[2019-03-11] MEDS ORDERED: BACLOFEN 10 MG TAB PO ONE (16:15)
[2019-03-11] MEDS ORDERED: KETOROLAC TROMETHAMINE 10 MG TAB PO ONE (16:15)
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
[2019-03-11 17:26] VITALS: BP 138/84
[2019-03-11] MEDS ORDERED: CYCL10TA PO (17:49)
== END 2019-03-11 17:52 | disposition home or self-care (01) ==
LOC: M ED 15:41
DX: S13.4XXA Sprain of ligaments of cervical spine, initial encounter (principal); V49.59XA Passenger injured in collision with other motor vehicles in traffic accident, initial encounter; Y92.410 Unspecified street and highway as the place of occurrence of the external cause; F33.9 Major depressive disorder, recurrent, unspecified; F41.9 Anxiety disorder, unspecified; Z79.899 Other long term (current) drug therapy; Z88.8 Allergy status to other drugs, medicaments and biological substances; J30.89 Other allergic rhinitis

== ENCOUNTER → 2019-05-01 | Outpatient (CLI) | payer OTHER ==
[~2019-05-01] MED LIST changes: +ACET1TAB55 PO; +CYCL10TA PO; +IBUP-1114 PO; -TRAZ-160 PO; +TRAZ-252 PO
--- NOTE | 2019-05-01 12:12 | REP ---
PELVIC ULTRASOUND: Real-time sonographic evaluation of the pelvis is performed utilizing transabdominal and endovaginal technique. The bladder measures 8.0 x 5.1 x 10.8 cm. The uterus measures 7.7 x 3.6 x 4.7 cm. Endometrial thickness is 8 mm. There is no endometrial fluid collection. IUD is seen in the endometrial canal. Right ovary measures 2.3 x 2.9 x 2.3 cm and left ovary 1.8 x 2.0 x 1.8 cm. Complex follicle in the right ovary measures 1.5 cm. There is no torsion. Resistive right ovary 0.45 and left ovary 0.37. No free fluid is seen. IMPRESSION: IUD within the endometrial canal. Complex dominant follicle right ovary 1.5 cm in diameter. No other evidence of adnexal mass or free fluid. No torsion. Electronically Signed by Scotty Villafuerte MD 05/01/2019 04:16 P
== END ==
LOC: M RAD 10:08
PROVIDERS: ATTEND Nurse Practitioner Adult Health
DX: N83.01 Follicular cyst of right ovary (principal); Z97.5 Presence of (intrauterine) contraceptive device; R10.2 Pelvic and perineal pain

== ENCOUNTER 2019-11-30 09:23 | Emergency (ER) | payer OTHER ==
[~2019-11-30] VITALS: Ht 154.9 cm; Wt 55.1 kg
[~2019-11-30 09:23] MED LIST changes: +CLON0.5T2 PO; -CLON0.5T8 PO; -DULO1CAP3; +DULO1CAP6; -LAMO200T2 PO; +LAMO200T3 PO
[2019-11-30 09:24] VITALS: BP 157/104
[2019-11-30] MEDS ORDERED: LAMO200T3 PO (09:59)
== END 2019-11-30 10:19 | disposition home or self-care (01) ==
LOC: M ED 09:23
DX: R41.9 Unspecified symptoms and signs involving cognitive functions and awareness (principal); Z76.0 Encounter for issue of repeat prescription; F10.10 Alcohol abuse, uncomplicated; F31.81 Bipolar II disorder; F90.9 Attention-deficit hyperactivity disorder, unspecified type; Z91.5 Personal history of self-harm; F17.200 Nicotine dependence, unspecified, uncomplicated; Z79.899 Other long term (current) drug therapy; J30.2 Other seasonal allergic rhinitis; Z88.8 Allergy status to other drugs, medicaments and biological substances

== ENCOUNTER 2020-01-26 09:30 | Emergency (ER) | payer OTHER ==
[~2020-01-26] VITALS: Ht 154.9 cm; Wt 55.3 kg
[2020-01-26] MEDS ORDERED: LAMO200T3 PO (10:42)
[2020-01-26 10:45] VITALS: BP 130/86
== END 2020-01-26 10:53 | disposition home or self-care (01) ==
LOC: M ED 09:30
DX: Z76.0 Encounter for issue of repeat prescription (principal); F41.9 Anxiety disorder, unspecified; F31.89 Other bipolar disorder; G43.909 Migraine, unspecified, not intractable, without status migrainosus; J30.1 Allergic rhinitis due to pollen; F17.200 Nicotine dependence, unspecified, uncomplicated; Z79.899 Other long term (current) drug therapy; Z88.8 Allergy status to other drugs, medicaments and biological substances; Z88.1 Allergy status to other antibiotic agents

== ENCOUNTER → 2020-04-13 | Outpatient (REF) | payer MEDICAID, OTHER, SELFPAY ==
[~2020-04-13] MED LIST changes: +CYCL-707 PO; -CYCL10TA PO
[2020-04-13 18:11] LABS: BASO # 0.1 10^3/uL (0.0-0.2); BASO % 0.5 % (0.0-1.0); EOS # 0.4 10^3/uL (0.0-0.5); EOS % 3.1 % (0.0-3.0); HEMOGLOBIN 14.2 g/dl (12.0-15.5); LYMPH % 36.7 % (24.0-44.0); MEAN CORPUSCULAR HEMOGLOBIN 34.7 pg (27.0-33.0); MEAN CORPUSCULAR HGB CONC 33.8 g/dl (32.0-36.5); MEAN CORPUSCULAR VOLUME 102.7 fl (80.0-96.0); MONO # 1.1 10^3/uL (0.0-0.8); MONO % 8.1 % (0.0-5.0); NEUTROPHILS # 6.9 10^3/uL (1.5-8.5); NEUTROPHILS % 51.2 % (36.0-66.0); PLATELET COUNT, AUTOMATED 301 10^3/uL (150-450); RED BLOOD COUNT 4.09 10^6/uL (4.00-5.40)
[2020-04-13 18:14] LABS: WHITE BLOOD COUNT 13.5 10^3/uL (4.0-10.0)
[2020-04-13 18:26] LABS: ALBUMIN 3.7 GM/DL (3.2-5.2); ALT/SGPT 39 U/L (12-78); BILIRUBIN,TOTAL 0.3 MG/DL (0.2-1.0); BLOOD UREA NITROGEN 14 MG/DL (7-18); CALCIUM LEVEL 8.8 MG/DL (8.5-10.1); CARBON DIOXIDE LEVEL 29 MEQ/L (21-32); CHLORIDE LEVEL 105 MEQ/L (98-107); CHOLESTEROL LEVEL 173 MG/DL (<200); CHOLESTEROL RISK RATIO 2.337 (<5); FREE T4 1.16 NG/DL (0.76-1.46); GLOMERULAR FILTRATION RATE > 60.0 (>60); GLUCOSE, FASTING 87 MG/DL (70-100); HDL CHOLESTEROL 74 MG/DL (>40); LDL CHOLESTEROL 70 MG/DL (<100); NON-HDL-C 99 MG/DL; POTASSIUM SERUM 4.2 MEQ/L (3.5-5.1); SODIUM LEVEL 140 MEQ/L (136-145); TOTAL PROTEIN 6.9 GM/DL (6.4-8.2); TRIGLYCERIDES LEVEL 145 MG/DL (<150)
[2020-04-13 18:27] LABS: TOTAL 25(OH) VITAMIN D 21.3 NG/ML (30.0-100.0)
[2020-04-13 18:58] LABS: HEMOGLOBIN A1c 4.8 %
== END ==
LOC: M LAB REF 16:21
PROVIDERS: ATTEND Nurse Practitioner Family
DX: G43.909 Migraine, unspecified, not intractable, without status migrainosus (principal); Z13.29 Encounter for screening for other suspected endocrine disorder; Z71.2 Person consulting for explanation of examination or test findings; K08.89 Other specified disorders of teeth and supporting structures; F31.9 Bipolar disorder, unspecified

== ENCOUNTER → 2020-05-19 | Outpatient (REF) | payer MEDICAID | LOC: M LAB REF 17:13 | PROVIDERS: ATTEND Nurse Practitioner Family | DX: Z12.4 Encounter for screening for malignant neoplasm of cervix (principal); R87.615 Unsatisfactory cytologic smear of cervix ==

== ENCOUNTER 2022-07-13 16:05 | Emergency (ER) | payer OTHER ==
[~2022-07-13] VITALS: Ht 154.9 cm; Wt 46.9 kg
[~2022-07-13 16:05] MED LIST changes: -HYDR-2807 PO; +HYDR-4433 PO; +METH-1164 PO; -METH1TAB40 PO
[2022-07-13 16:06] VITALS: BP 125/81
[2022-07-13 19:03] LABS: BASO # 0.1 10^3/uL (0.0-0.2); BASO % 0.7 % (0.0-1.0); EOS # 0.2 10^3/uL (0.0-0.5); EOS % 1.5 % (0.0-3.0); HEMATOCRIT 45.4 % (36.0-47.0); HEMOGLOBIN 15.5 g/dl (12.0-15.5); LYMPH # 4.9 10^3/uL (1.5-5.0); LYMPH % 34.2 % (24.0-44.0); MEAN CORPUSCULAR HEMOGLOBIN 34.1 pg (27.0-33.0); MEAN CORPUSCULAR HGB CONC 34.1 g/dl (32.0-36.5); MEAN CORPUSCULAR VOLUME 99.8 fl (80.0-96.0); MONO # 1.2 10^3/uL (0.0-0.8); MONO % 8.4 % (2.0-8.0); NEUTROPHILS # 7.9 10^3/uL (1.5-8.5); NEUTROPHILS % 54.9 % (36.0-66.0); PLATELET COUNT, AUTOMATED 298 10^3/uL (150-450); RED BLOOD COUNT 4.55 10^6/uL (4.00-5.40); WHITE BLOOD COUNT 14.3 10^3/uL (4.0-10.0)
[2022-07-13 19:37] LABS: HCG, SERUM QUALITATIVE NEGATIVE (NEGATIVE)
[2022-07-13 19:50] LABS: BLOOD UREA NITROGEN 7 MG/DL (7-18); CALCIUM LEVEL 9.3 MG/DL (8.5-10.1); CARBON DIOXIDE LEVEL 30 MEQ/L (21-32); CHLORIDE LEVEL 106 MEQ/L (98-107); CREATININE FOR GFR 0.73 MG/DL (0.55-1.30); GLOMERULAR FILTRATION RATE > 60.0 (>58); GLUCOSE, FASTING 91 MG/DL (70-100); POTASSIUM SERUM 4.4 MEQ/L (3.5-5.1); SODIUM LEVEL 141 MEQ/L (136-145)
== END 2022-07-13 22:52 | disposition left against medical advice (07) ==
LOC: M ED 16:05
DX: Z53.21 Procedure and treatment not carried out due to patient leaving prior to being seen by health care provider (principal)

== ENCOUNTER → 2022-07-25 | Outpatient (CLI) | payer OTHER | LOC: M PLAIMG 15:17 | PROVIDERS: ATTEND Pediatrics | DX: R59.0 Localized enlarged lymph nodes (principal) ==

== ENCOUNTER → 2022-08-14 | Outpatient (CLI) | payer OTHER | LOC: M WHC 13:31 | PROVIDERS: ATTEND Pediatrics | DX: N64.4 Mastodynia (principal); N60.12 Diffuse cystic mastopathy of left breast | CPT/HCPCS: 76642; 77066; G0279 ==

== ENCOUNTER → 2023-08-16 | Outpatient (CLI) | payer OTHER ==
[~2023-08-16] MED LIST changes: +TOPI-254; -TOPI50TA9
== END ==
LOC: M OUTALCOH 11:15
PROVIDERS: ATTEND Psychiatry & Neurology Psychiatry
DX: Z03.89 Encounter for observation for other suspected diseases and conditions ruled out (principal)

== ENCOUNTER 2023-10-09 12:22 | Outpatient (RCR) | payer OTHER | END 2023-10-31 | LOC: M OUTALCOH 12:22 | PROVIDERS: ATTEND Psychiatry & Neurology Psychiatry | DX: F10.20 Alcohol dependence, uncomplicated (principal); F17.200 Nicotine dependence, unspecified, uncomplicated ==

== ENCOUNTER → 2024-01-24 | Outpatient (CLI) | payer OTHER ==
[~2024-01-24] MED LIST changes: +TOPI-21; -TOPI-254
== END ==
LOC: M RAD 08:45
PROVIDERS: ATTEND Nurse Practitioner Family
DX: R06.00 Dyspnea, unspecified (principal); R05.9 Cough, unspecified; R91.8 Other nonspecific abnormal finding of lung field

== ENCOUNTER 2024-03-10 13:35 | Emergency (ER) | payer OTHER ==
[~2024-03-10] VITALS: Ht 154.9 cm; Wt 50.3 kg
[2024-03-10] MEDS ORDERED: INDO50CA91 PO (21:05)
[2024-03-10 21:17] VITALS: BP 138/68; TEMP 97.4; O2SAT 100
[2024-03-10] MEDS: INDOMETHACIN 25 MG CAP PO ONE (21:24)
== END 2024-03-10 21:29 | disposition home or self-care (01) ==
LOC: M ED 13:35
DX: M75.21 Bicipital tendinitis, right shoulder (principal); J44.9 Chronic obstructive pulmonary disease, unspecified; R51.9 Headache, unspecified; F17.200 Nicotine dependence, unspecified, uncomplicated; Z88.8 Allergy status to other drugs, medicaments and biological substances; Z91.048 Other nonmedicinal substance allergy status; Z79.1 Long term (current) use of non-steroidal anti-inflammatories (NSAID); Z79.899 Other long term (current) drug therapy

== ENCOUNTER → 2024-05-21 | Outpatient (CLI) | payer OTHER ==
[~2024-05-21] MED LIST changes: +E-Z-GAS II EFFERVESCENT PACKET (SODIUM BICARB./CITRIC ACID/SIMETHICONE) As Ordered ONE; +E-Z-HD 98% w/w 340GM SUSP BTL As Ordered ONE; +E-Z-PAQUE 96% w/w SUSP 176GM BTL As Ordered ONE; +INDO50CA91 PO
== END ==
LOC: M RAD 07:44
PROVIDERS: ATTEND Student in an Organized Health Care Education/Training Program
DX: R13.10 Dysphagia, unspecified (principal)

== ENCOUNTER → 2025-04-12 | Outpatient (CLI) | payer BC ==
[~2025-04-12] MED LIST changes: -AMBI10TA PO; -E-Z-GAS II EFFERVESCENT PACKET (SODIUM BICARB./CITRIC ACID/SIMETHICONE) As Ordered ONE; -E-Z-HD 98% w/w 340GM SUSP BTL As Ordered ONE; -E-Z-PAQUE 96% w/w SUSP 176GM BTL As Ordered ONE; +LIDO1ADH93 TD; -LIDO5DIS41 TD; +LITH450T17; -LITH45TASA; -PREG50CA PO; +PREG50CA87 PO; +TOPI-257; -TOPI100T9; +ZOLP-533 PO
== END ==
LOC: M RAD 14:30
PROVIDERS: ATTEND Pediatrics
DX: Z30.431 Encounter for routine checking of intrauterine contraceptive device (principal)